=== PATIENT | female | born 1970 | race Hispanic/Latino ===

== ENCOUNTER 2021-03-11 03:41 | Inpatient (IN) | payer SELFPAY ==
[2021-03-11] MEDS ORDERED: Ibuprofen 200 MG TAB PO PRN (16:24)
[2021-03-11] MEDS ORDERED: Labetalol HCl 100 MG/20 ML VIAL SLOW IVP PRN (16:24)
[2021-03-11] MEDS ORDERED: Cepastat Lozenges 1 LOZ PO PRN (16:24)
[2021-03-11] MEDS ORDERED: hydrALAZINE 20 MG/ML VIAL SLOW IVP PRN (16:24)
[2021-03-11] MEDS ORDERED: Sodium Chloride 0.65% Nasal 44 ML BOT EA NARE PRN (16:24)
[2021-03-11] MEDS ORDERED: Potassium Chloride 20 MEQ TAB PO SCH (16:30)
[2021-03-11] MEDS ORDERED: REMDESIVIR 200 MG in Sodium Chloride 0.9% 250 ML 210 ML IV SCH (17:00)
[2021-03-11] MEDS ORDERED: Albuterol Sulfate HFA (OR ONLY) INH PRN (17:13)
[2021-03-11 17:27] LABS: Troponin I 0.263 ng/mL (< 0.028)
[2021-03-11] MEDS ORDERED: Furosemide 20 MG/2 ML VIAL SLOW IVP SCH (17:30)
[2021-03-11] MEDS ORDERED: Albuterol 200 PUFF (6.7GM INHALER) INH PRN (17:30)
[2021-03-11] MEDS ORDERED: Electrolyte Replacement Protocol 1 EACH FS PRN (18:00)
[2021-03-11] MEDS: Azithromycin 500 MG in Sodium Chloride 0.9% 250 ML 250 ML IVPB SCH (18:35)
[2021-03-11] MEDS: Acetaminophen 500 MG TAB PO PRN (18:42)
[2021-03-11] MEDS: GUAIFENESIN SF SOLN 200 MG/10 ML UDCUP PO PRN (18:48)
[2021-03-11] MEDS: Dexamethasone 4 mg/ml Vial SLOW IVP SCH (20:53)
[2021-03-11 22:32] LABS: Troponin I 0.305 ng/mL (< 0.028)
[2021-03-11] MEDS: Melatonin 3 MG TAB PO PRN (23:00)
[2021-03-12 05:24] LABS: #Lymphocytes 0.8 thou/uL (1.20-3.40); #Monocytes 0.3 thou/uL (0.11-0.59); #Neutrophils 11.9 thou/uL (1.40-6.50); %Basophils 0.1 % (0.0-1.0); %Eosinophils 0.1 % (0.0-10.0); %Monocytes 2.4 % (0.0-10.0); %Neutrophils 91.4 % (42.0-75.0); Hemoglobin 13.5 g/dL (12.0-16.0); Mean Corpuscular HGB CONC 30.9 g/dL (32.0-36.0); Mean Corpuscular Volume 90.5 fL (78.0-98.0); Mean Platelet Volume 8.5 fL (7.4-10.4); Platelet Count 287 thou/uL (130-400); RBC Distribution Width 14.7 % (11.5-14.5); Red Blood Cell (RBC) Count 4.83 mill/uL (4.20-5.40)
[2021-03-12 05:49] LABS: Anion Gap 14 mmol/L (10-20); BUN (Urea Nitrogen) 26 mg/dL (7.0-18.7); Calc. Creatinine Clearance 186 mL/min (70-130); Calcium 8.1 mg/dL (7.8-10.44); Carbon Dioxide 26 mmol/L (22-29); Chloride 104 mmol/L (98-107); Glucose 182 mg/dL (70-105); Magnesium 2.3 mg/dL (1.6-2.6); Potassium 4.5 mmol/L (3.5-5.1); Sodium 139 mmol/L (136-145)
[2021-03-12] MEDS: Acetaminophen 500 MG TAB PO PRN ×2 (05:58→16:19)
[2021-03-12 08:51] LABS: Troponin I 0.523 ng/mL (< 0.028)
[2021-03-12] MEDS ORDERED: Enoxaparin Sodium 40 MG/0.4 ML SYRINGE SC SCH (09:00)
[2021-03-12] MEDS: Cholecalciferol 1,000 UNITS (25 MCG) TAB PO SCH (09:35)
[2021-03-12] MEDS: Ascorbic Acid 500 mg Chewable Tablet PO SCH (09:36)
[2021-03-12] MEDS: Zinc Sulfate 220 MG CAP PO SCH (09:36)
[2021-03-12] MEDS: Benzonatate 100 MG CAP PO PRN (09:36)
[2021-03-12] MEDS: Dexamethasone 4 mg/ml Vial SLOW IVP SCH ×2 (09:37→20:53)
[2021-03-12] MEDS: GUAIFENESIN SF SOLN 200 MG/10 ML UDCUP PO PRN ×2 (09:39→16:19)
[2021-03-12] MEDS: Azithromycin 500 MG in Sodium Chloride 0.9% 250 ML 250 ML IVPB SCH (16:03)
[2021-03-12] MEDS: REMDESIVIR 100 MG in Sodium Chloride 0.9% 250 ML 230 ML IV SCH (20:53)
[2021-03-12] MEDS ORDERED: Morphine 2 MG/ML VIAL SLOW IVP PRN (21:57)
[2021-03-12] MEDS: Nitroglycerin 0.4 MG TAB (25 Tab Bottle) SL PRN ×3 (22:46→23:30)
[2021-03-13 06:04] LABS: #Lymphocytes 0.8 thou/uL (1.20-3.40); #Monocytes 0.4 thou/uL (0.11-0.59); #Neutrophils 8.1 thou/uL (1.40-6.50); %Eosinophils 0.1 % (0.0-10.0); %Monocytes 3.8 % (0.0-10.0); %Neutrophils 87.1 % (42.0-75.0); Hemoglobin 13.5 g/dL (12.0-16.0); Mean Corpuscular HGB CONC 30.3 g/dL (32.0-36.0); Mean Corpuscular Hemoglobin 27.2 pg (27.0-31.0); Mean Corpuscular Volume 89.8 fL (78.0-98.0); Mean Platelet Volume 8.7 fL (7.4-10.4); Platelet Count 290 thou/uL (130-400); RBC Distribution Width 14.7 % (11.5-14.5); Red Blood Cell (RBC) Count 4.96 mill/uL (4.20-5.40); White Blood Cell (WBC) Count 9.3 thou/uL (4.8-10.8)
[2021-03-13 06:29] LABS: Anion Gap 17 mmol/L (10-20); BUN (Urea Nitrogen) 38 mg/dL (7.0-18.7); CRP (Inflammatory) 13.19 mg/dL (= or < 0.5); Calc. Creatinine Clearance 211 mL/min (70-130); Calcium 7.7 mg/dL (7.8-10.44); Carbon Dioxide 21 mmol/L (22-29); Chloride 105 mmol/L (98-107); Glucose 179 mg/dL (70-105); Potassium 4.7 mmol/L (3.5-5.1); Sodium 138 mmol/L (136-145)
[2021-03-13] MEDS ORDERED: Furosemide 100 MG/10 ML VIAL SLOW IVP SCH (07:45)
[2021-03-13] MEDS ORDERED: Enoxaparin Sodium 120 MG/0.8 ML SYRINGE SC SCH (09:00)
[2021-03-13] MEDS: Acetaminophen 500 MG TAB PO PRN ×2 (09:41→21:47)
[2021-03-13] MEDS: Ascorbic Acid 500 mg Chewable Tablet PO SCH (09:42)
[2021-03-13] MEDS: Cholecalciferol 1,000 UNITS (25 MCG) TAB PO SCH (09:43)
[2021-03-13] MEDS: Zinc Sulfate 220 MG CAP PO SCH (09:43)
[2021-03-13] MEDS: Benzonatate 100 MG CAP PO PRN (09:43)
[2021-03-13] MEDS: Dexamethasone 4 mg/ml Vial SLOW IVP SCH ×2 (09:44→21:27)
[2021-03-13] MEDS: GUAIFENESIN SF SOLN 200 MG/10 ML UDCUP PO PRN ×2 (09:45→16:46)
[2021-03-13] MEDS: Azithromycin 500 MG in Sodium Chloride 0.9% 250 ML 250 ML IVPB SCH (16:26)
[2021-03-13] MEDS: Mometasone 100 MCG/Formoterol 5 MCG 120 PUFF INHALER INH SCH (18:37)
[2021-03-13] MEDS: REMDESIVIR 100 MG in Sodium Chloride 0.9% 250 ML 230 ML IV SCH (21:26)
[2021-03-13] MEDS: Enoxaparin Sodium 60 MG/0.6 ML SYRINGE SC SCH (21:26)
[2021-03-13] MEDS: BARICITINIB 2 MG TAB PO SCH (21:27)
[2021-03-13] MEDS: Enoxaparin Sodium 80 MG/0.8 ML SYRINGE SC SCH (21:30)
[2021-03-14 05:51] LABS: #Basophils 0.1 thou/uL (0.0-0.2); #Lymphocytes 1.1 thou/uL (1.20-3.40); #Monocytes 0.5 thou/uL (0.11-0.59); #Neutrophils 9.7 thou/uL (1.40-6.50); %Basophils 0.9 % (0.0-1.0); %Lymphocytes 9.3 % (21.0-51.0); %Monocytes 4.1 % (0.0-10.0); %Neutrophils 85.7 % (42.0-75.0); Hemoglobin 13.2 g/dL (12.0-16.0); Mean Corpuscular HGB CONC 30.8 g/dL (32.0-36.0); Mean Corpuscular Hemoglobin 27.4 pg (27.0-31.0); Mean Platelet Volume 8.7 fL (7.4-10.4); Platelet Count 272 thou/uL (130-400); RBC Distribution Width 14.5 % (11.5-14.5); Red Blood Cell (RBC) Count 4.79 mill/uL (4.20-5.40); White Blood Cell (WBC) Count 11.3 thou/uL (4.8-10.8)
[2021-03-14] MEDS: Mometasone 100 MCG/Formoterol 5 MCG 120 PUFF INHALER INH SCH ×2 (06:18→17:38)
[2021-03-14 06:24] LABS: Anion Gap 14 mmol/L (10-20); BUN (Urea Nitrogen) 36 mg/dL (7.0-18.7); Calc. Creatinine Clearance 236 mL/min (70-130); Calcium 7.7 mg/dL (7.8-10.44); Carbon Dioxide 25 mmol/L (22-29); Chloride 103 mmol/L (98-107); Glucose 169 mg/dL (70-105); Potassium 4.4 mmol/L (3.5-5.1); Sodium 138 mmol/L (136-145)
[2021-03-14] MEDS ORDERED: Furosemide 100 MG/10 ML VIAL SLOW IVP SCH (08:45)
[2021-03-14] MEDS: Benzonatate 100 MG CAP PO PRN (08:46)
[2021-03-14] MEDS: Cholecalciferol 1,000 UNITS (25 MCG) TAB PO SCH (08:46)
[2021-03-14] MEDS: Zinc Sulfate 220 MG CAP PO SCH (08:46)
[2021-03-14] MEDS: Aspirin 81 mg Enteric Coated Tablet PO SCH (08:46)
[2021-03-14] MEDS: GUAIFENESIN SF SOLN 200 MG/10 ML UDCUP PO PRN (08:47)
[2021-03-14] MEDS: Ascorbic Acid 500 mg Chewable Tablet PO SCH (08:47)
[2021-03-14] MEDS: Dexamethasone 4 mg/ml Vial SLOW IVP SCH ×2 (08:48→20:40)
[2021-03-14] MEDS: Enoxaparin Sodium 80 MG/0.8 ML SYRINGE SC SCH ×2 (08:50→20:40)
[2021-03-14] MEDS: Enoxaparin Sodium 60 MG/0.6 ML SYRINGE SC SCH ×2 (08:50→20:40)
[2021-03-14] MEDS: Nitroglycerin 0.4 MG TAB (25 Tab Bottle) SL PRN (09:56)
[2021-03-14] MEDS: Azithromycin 500 MG in Sodium Chloride 0.9% 250 ML 250 ML IVPB SCH (16:18)
[2021-03-14] MEDS: BARICITINIB 2 MG TAB PO SCH (20:41)
[2021-03-14] MEDS: REMDESIVIR 100 MG in Sodium Chloride 0.9% 250 ML 230 ML IV SCH (20:41)
[2021-03-15 05:58] LABS: Hemoglobin 13.9 g/dL (12.0-16.0); Mean Corpuscular Hemoglobin 27.6 pg (27.0-31.0); Platelet Count 276 thou/uL (130-400); RBC Distribution Width 14.5 % (11.5-14.5); Red Blood Cell (RBC) Count 5.06 mill/uL (4.20-5.40); White Blood Cell (WBC) Count 10.2 thou/uL (4.8-10.8)
[2021-03-15 06:02] LABS: Anion Gap 14 mmol/L (10-20); BUN (Urea Nitrogen) 31 mg/dL (7.0-18.7); Calc. Creatinine Clearance 220 mL/min (70-130); Calcium 7.8 mg/dL (7.8-10.44); Carbon Dioxide 27 mmol/L (22-29); Chloride 101 mmol/L (98-107); Glucose 230 mg/dL (70-105); Potassium 4.5 mmol/L (3.5-5.1); Sodium 137 mmol/L (136-145)
[2021-03-15 06:19] LABS: Bilirubin, Total 0.5 mg/dL (0.2-1.2)
[2021-03-15 06:33] LABS: ALT (SGPT) 107 U/L (8-55); AST (SGOT) 49 U/L (5-34); Alkaline Phosphatase 192 U/L (40-110); Bilirubin, Direct 0.3 mg/dL (0.1-0.3); Protein, Total 7.3 g/dL (6.0-8.3)
[2021-03-15 06:41] LABS: Band 7 % (5-11); Lymphocytes 8 % (21-51); MDiff Complete? YES; Monocytes 9 % (0-10); Neutrophil 76 % (42-75)
[2021-03-15] MEDS: Mometasone 100 MCG/Formoterol 5 MCG 120 PUFF INHALER INH SCH ×2 (07:59→17:53)
[2021-03-15] MEDS ORDERED: Spironolactone 25 MG TAB PO SCH (08:30)
[2021-03-15] MEDS ORDERED: Furosemide 100 MG/10 ML VIAL SLOW IVP SCH (08:30)
[2021-03-15] MEDS: Enoxaparin Sodium 80 MG/0.8 ML SYRINGE SC SCH ×2 (10:23→21:22)
[2021-03-15] MEDS: Enoxaparin Sodium 60 MG/0.6 ML SYRINGE SC SCH ×2 (10:23→21:22)
[2021-03-15] MEDS: Zinc Sulfate 220 MG CAP PO SCH (10:24)
[2021-03-15] MEDS: Aspirin 81 mg Enteric Coated Tablet PO SCH (10:24)
[2021-03-15] MEDS: Ascorbic Acid 500 mg Chewable Tablet PO SCH (10:24)
[2021-03-15] MEDS: GUAIFENESIN SF SOLN 200 MG/10 ML UDCUP PO PRN ×2 (10:26→22:02)
[2021-03-15] MEDS: Dexamethasone 4 mg/ml Vial SLOW IVP SCH ×2 (10:28→21:22)
[2021-03-15] MEDS: Cholecalciferol 1,000 UNITS (25 MCG) TAB PO SCH (10:30)
[2021-03-15] MEDS: Benzonatate 100 MG CAP PO PRN (10:31)
[2021-03-15] MEDS: Acetaminophen 500 MG TAB PO PRN ×2 (13:44→22:01)
[2021-03-15] MEDS: Azithromycin 500 MG in Sodium Chloride 0.9% 250 ML 250 ML IVPB SCH (16:00)
[2021-03-15] MEDS: BARICITINIB 2 MG TAB PO SCH (21:22)
[2021-03-15] MEDS: REMDESIVIR 100 MG in Sodium Chloride 0.9% 250 ML 230 ML IV SCH (21:23)
[2021-03-16 05:29] LABS: #Lymphocytes 0.9 thou/uL (1.20-3.40); #Monocytes 0.5 thou/uL (0.11-0.59); #Neutrophils 11.3 thou/uL (1.40-6.50); %Basophils 0.2 % (0.0-1.0); %Eosinophils 0.3 % (0.0-10.0); %Lymphocytes 7.2 % (21.0-51.0); %Monocytes 3.8 % (0.0-10.0); %Neutrophils 88.6 % (42.0-75.0); Hemoglobin 14.1 g/dL (12.0-16.0); Mean Corpuscular HGB CONC 31.9 g/dL (32.0-36.0); Mean Corpuscular Hemoglobin 28.4 pg (27.0-31.0); Mean Corpuscular Volume 88.9 fL (78.0-98.0); Mean Platelet Volume 8.7 fL (7.4-10.4); Platelet Count 281 thou/uL (130-400); RBC Distribution Width 14.4 % (11.5-14.5); Red Blood Cell (RBC) Count 4.98 mill/uL (4.20-5.40); White Blood Cell (WBC) Count 12.7 thou/uL (4.8-10.8)
[2021-03-16 05:53] LABS: Anion Gap 16 mmol/L (10-20); BUN (Urea Nitrogen) 39 mg/dL (7.0-18.7); Calc. Creatinine Clearance 195 mL/min (70-130); Calcium 7.7 mg/dL (7.8-10.44); Carbon Dioxide 27 mmol/L (22-29); Chloride 99 mmol/L (98-107); Glucose 190 mg/dL (70-105); Potassium 4.5 mmol/L (3.5-5.1); Sodium 137 mmol/L (136-145)
[2021-03-16] MEDS: Mometasone 100 MCG/Formoterol 5 MCG 120 PUFF INHALER INH SCH ×2 (06:26→17:24)
[2021-03-16] MEDS ORDERED: Furosemide 100 MG/10 ML VIAL SLOW IVP SCH (07:15)
[2021-03-16] MEDS: Enoxaparin Sodium 80 MG/0.8 ML SYRINGE SC SCH ×2 (08:00→20:59)
[2021-03-16] MEDS: Aspirin 81 mg Enteric Coated Tablet PO SCH (08:01)
[2021-03-16] MEDS: Enoxaparin Sodium 60 MG/0.6 ML SYRINGE SC SCH ×2 (08:01→20:59)
[2021-03-16] MEDS: Zinc Sulfate 220 MG CAP PO SCH (08:01)
[2021-03-16] MEDS: Cholecalciferol 1,000 UNITS (25 MCG) TAB PO SCH (08:02)
[2021-03-16] MEDS: Ascorbic Acid 500 mg Chewable Tablet PO SCH (08:02)
[2021-03-16] MEDS: Spironolactone 25 MG TAB PO SCH (08:02)
[2021-03-16] MEDS: Dexamethasone 4 mg/ml Vial SLOW IVP SCH ×2 (08:03→20:59)
[2021-03-16] MEDS: Azithromycin 500 MG in Sodium Chloride 0.9% 250 ML 250 ML IVPB SCH (17:24)
[2021-03-16] MEDS: BARICITINIB 2 MG TAB PO SCH (20:58)
[2021-03-16] MEDS: Lisinopril 5 MG TAB PO SCH (21:02)
[2021-03-17] MEDS: Mometasone 100 MCG/Formoterol 5 MCG 120 PUFF INHALER INH SCH ×2 (06:26→18:15)
[2021-03-17] MEDS: Enoxaparin Sodium 80 MG/0.8 ML SYRINGE SC SCH ×2 (09:18→20:19)
[2021-03-17] MEDS: Enoxaparin Sodium 60 MG/0.6 ML SYRINGE SC SCH ×2 (09:19→20:17)
[2021-03-17] MEDS: Aspirin 81 mg Enteric Coated Tablet PO SCH (09:19)
[2021-03-17] MEDS: Benzonatate 100 MG CAP PO PRN (09:20)
[2021-03-17] MEDS: Spironolactone 25 MG TAB PO SCH (09:20)
[2021-03-17] MEDS: Zinc Sulfate 220 MG CAP PO SCH (09:20)
[2021-03-17] MEDS: Ascorbic Acid 500 mg Chewable Tablet PO SCH (09:20)
[2021-03-17] MEDS: Furosemide 40 MG/4 ML VIAL SLOW IVP SCH (09:21)
[2021-03-17] MEDS: Cholecalciferol 1,000 UNITS (25 MCG) TAB PO SCH (09:21)
[2021-03-17] MEDS: Dexamethasone 4 mg/ml Vial SLOW IVP SCH ×2 (09:22→20:17)
[2021-03-17] MEDS: GUAIFENESIN SF SOLN 200 MG/10 ML UDCUP PO PRN (09:23)
[2021-03-17] MEDS: Lisinopril 5 MG TAB PO SCH ×2 (09:23→20:18)
[2021-03-17] MEDS: Azithromycin 500 MG in Sodium Chloride 0.9% 250 ML 250 ML IVPB SCH (16:30)
[2021-03-17] MEDS: BARICITINIB 2 MG TAB PO SCH (20:17)
[2021-03-18 05:49] LABS: ALT (SGPT) 40 U/L (8-55); AST (SGOT) 15 U/L (5-34); Albumin 2.8 g/dL (3.5-5.0); Alkaline Phosphatase 130 U/L (40-110); Bilirubin, Direct 0.3 mg/dL (0.1-0.3); Bilirubin, Total 0.6 mg/dL (0.2-1.2)
[2021-03-18] MEDS: Mometasone 100 MCG/Formoterol 5 MCG 120 PUFF INHALER INH SCH ×2 (06:20→17:55)
[2021-03-18] MEDS: Aspirin 81 mg Enteric Coated Tablet PO SCH (10:09)
[2021-03-18] MEDS: Benzonatate 100 MG CAP PO PRN ×2 (10:09→18:09)
[2021-03-18] MEDS: Lisinopril 5 MG TAB PO SCH ×2 (10:10→20:25)
[2021-03-18] MEDS: Ascorbic Acid 500 mg Chewable Tablet PO SCH (10:10)
[2021-03-18] MEDS: Zinc Sulfate 220 MG CAP PO SCH (10:11)
[2021-03-18] MEDS: Spironolactone 25 MG TAB PO SCH (10:11)
[2021-03-18] MEDS: Enoxaparin Sodium 60 MG/0.6 ML SYRINGE SC SCH ×2 (10:11→20:24)
[2021-03-18] MEDS: Cholecalciferol 1,000 UNITS (25 MCG) TAB PO SCH (10:11)
[2021-03-18] MEDS: Furosemide 40 MG/4 ML VIAL SLOW IVP SCH (10:12)
[2021-03-18] MEDS: Enoxaparin Sodium 80 MG/0.8 ML SYRINGE SC SCH ×2 (10:12→20:24)
[2021-03-18] MEDS: GUAIFENESIN SF SOLN 200 MG/10 ML UDCUP PO PRN ×2 (10:13→18:09)
[2021-03-18] MEDS: Dexamethasone 4 mg/ml Vial SLOW IVP SCH ×2 (10:13→20:25)
[2021-03-18] MEDS: Azithromycin 500 MG in Sodium Chloride 0.9% 250 ML 250 ML IVPB SCH (17:55)
[2021-03-18] MEDS: BARICITINIB 2 MG TAB PO SCH (20:24)
[2021-03-19] MEDS: Mometasone 100 MCG/Formoterol 5 MCG 120 PUFF INHALER INH SCH ×2 (06:16→18:45)
[2021-03-19] MEDS: Acetaminophen 500 MG TAB PO PRN (06:26)
[2021-03-19] MEDS: Furosemide 40 MG/4 ML VIAL SLOW IVP SCH (09:55)
[2021-03-19] MEDS: Zinc Sulfate 220 MG CAP PO SCH (09:59)
[2021-03-19] MEDS: Benzonatate 100 MG CAP PO PRN ×3 (09:59→21:18)
[2021-03-19] MEDS: Aspirin 81 mg Enteric Coated Tablet PO SCH (10:00)
[2021-03-19] MEDS: Lisinopril 5 MG TAB PO SCH ×2 (10:00→21:08)
[2021-03-19] MEDS: Ascorbic Acid 500 mg Chewable Tablet PO SCH (10:00)
[2021-03-19] MEDS: Spironolactone 25 MG TAB PO SCH (10:00)
[2021-03-19] MEDS: Enoxaparin Sodium 80 MG/0.8 ML SYRINGE SC SCH ×2 (10:01→21:06)
[2021-03-19] MEDS: Enoxaparin Sodium 60 MG/0.6 ML SYRINGE SC SCH ×2 (10:01→21:06)
[2021-03-19] MEDS: Dexamethasone 4 mg/ml Vial SLOW IVP SCH (10:01)
[2021-03-19] MEDS: GUAIFENESIN SF SOLN 200 MG/10 ML UDCUP PO PRN ×3 (10:02→21:18)
[2021-03-19] MEDS: Cholecalciferol 1,000 UNITS (25 MCG) TAB PO SCH (10:02)
[2021-03-19] MEDS: Azithromycin 500 MG in Sodium Chloride 0.9% 250 ML 250 ML IVPB SCH (17:42)
[2021-03-19] MEDS: BARICITINIB 2 MG TAB PO SCH (21:08)
[2021-03-20] MEDS: GUAIFENESIN SF SOLN 200 MG/10 ML UDCUP PO PRN (03:36)
[2021-03-20 05:55] LABS: Anion Gap 13 mmol/L (10-20); BUN (Urea Nitrogen) 38 mg/dL (7.0-18.7); Calc. Creatinine Clearance 187 mL/min (70-130); Calcium 7.6 mg/dL (7.8-10.44); Carbon Dioxide 28 mmol/L (22-29); Chloride 99 mmol/L (98-107); Glucose 260 mg/dL (70-105); Sodium 135 mmol/L (136-145)
[2021-03-20] MEDS: Mometasone 100 MCG/Formoterol 5 MCG 120 PUFF INHALER INH SCH ×2 (06:29→18:32)
[2021-03-20] MEDS: Enoxaparin Sodium 60 MG/0.6 ML SYRINGE SC SCH ×2 (08:24→20:47)
[2021-03-20] MEDS: Dexamethasone 4 mg/ml Vial SLOW IVP SCH (08:25)
[2021-03-20] MEDS: Enoxaparin Sodium 80 MG/0.8 ML SYRINGE SC SCH ×2 (08:25→20:48)
[2021-03-20] MEDS: Spironolactone 25 MG TAB PO SCH (08:31)
[2021-03-20] MEDS: Ascorbic Acid 500 mg Chewable Tablet PO SCH (08:31)
[2021-03-20] MEDS: Benzonatate 100 MG CAP PO PRN (08:58)
[2021-03-20] MEDS: Zinc Sulfate 220 MG CAP PO SCH (08:58)
[2021-03-20] MEDS: Aspirin 81 mg Enteric Coated Tablet PO SCH (08:58)
[2021-03-20] MEDS: Furosemide 40 MG TAB PO SCH (08:59)
[2021-03-20] MEDS: Cholecalciferol 1,000 UNITS (25 MCG) TAB PO SCH (08:59)
[2021-03-20] MEDS: Lisinopril 5 MG TAB PO SCH (08:59)
[2021-03-20] MEDS: Acetaminophen 500 MG TAB PO PRN (09:18)
[2021-03-20] MEDS: Azithromycin 500 MG in Sodium Chloride 0.9% 250 ML 250 ML IVPB SCH (18:26)
[2021-03-20] MEDS: BARICITINIB 2 MG TAB PO SCH (20:48)
[2021-03-21] MEDS: Mometasone 100 MCG/Formoterol 5 MCG 120 PUFF INHALER INH SCH ×2 (06:25→16:38)
[2021-03-21 09:40] LABS: ALT (SGPT) 26 U/L (8-55); AST (SGOT) 18 U/L (5-34); Albumin 2.9 g/dL (3.5-5.0); Alkaline Phosphatase 115 U/L (40-110); Bilirubin, Direct 0.3 mg/dL (0.1-0.3); Bilirubin, Total 0.7 mg/dL (0.2-1.2); Protein, Total 6.4 g/dL (6.0-8.3)
[2021-03-21] MEDS: Furosemide 40 MG TAB PO SCH (09:52)
[2021-03-21] MEDS: Cholecalciferol 1,000 UNITS (25 MCG) TAB PO SCH (09:54)
[2021-03-21] MEDS: Benzonatate 100 MG CAP PO PRN (09:55)
[2021-03-21] MEDS: Lisinopril 5 MG TAB PO SCH (09:55)
[2021-03-21] MEDS: Aspirin 81 mg Enteric Coated Tablet PO SCH (09:55)
[2021-03-21] MEDS: Ascorbic Acid 500 mg Chewable Tablet PO SCH (09:56)
[2021-03-21] MEDS: Acetaminophen 500 MG TAB PO PRN (09:56)
[2021-03-21] MEDS: Spironolactone 25 MG TAB PO SCH (09:56)
[2021-03-21] MEDS: Zinc Sulfate 220 MG CAP PO SCH (09:56)
[2021-03-21] MEDS: Enoxaparin Sodium 80 MG/0.8 ML SYRINGE SC SCH ×2 (09:57→20:34)
[2021-03-21] MEDS: Dexamethasone 4 mg/ml Vial SLOW IVP SCH (09:58)
[2021-03-21] MEDS: Enoxaparin Sodium 60 MG/0.6 ML SYRINGE SC SCH (09:58)
[2021-03-21] MEDS: GUAIFENESIN SF SOLN 200 MG/10 ML UDCUP PO PRN (10:00)
[2021-03-21] MEDS: Azithromycin 500 MG in Sodium Chloride 0.9% 250 ML 250 ML IVPB SCH (16:38)
[2021-03-21] MEDS: Lorazepam 0.5 MG TAB PO PRN (17:51)
[2021-03-21] MEDS: BARICITINIB 2 MG TAB PO SCH (20:35)
[2021-03-22 05:40] LABS: Hemoglobin 13.5 g/dL (12.0-16.0); Mean Corpuscular HGB CONC 30.8 g/dL (32.0-36.0); Mean Corpuscular Hemoglobin 27.7 pg (27.0-31.0); Mean Platelet Volume 8.8 fL (7.4-10.4); Platelet Count 345 thou/uL (130-400); RBC Distribution Width 14.9 % (11.5-14.5); Red Blood Cell (RBC) Count 4.85 mill/uL (4.20-5.40); White Blood Cell (WBC) Count 18.2 thou/uL (4.8-10.8)
[2021-03-22] MEDS: Mometasone 100 MCG/Formoterol 5 MCG 120 PUFF INHALER INH SCH ×2 (05:40→21:14)
[2021-03-22 05:41] LABS: Lymphocytes 3 % (21-51); MDiff Complete? YES; Monocytes 18 % (0-10); Neutrophil 79 % (42-75); Platelet Morphology Comment Appears Adequate; RBC Morphology Normal
[2021-03-22 05:45] LABS: Anion Gap 12 mmol/L (10-20); BUN (Urea Nitrogen) 36 mg/dL (7.0-18.7); Calc. Creatinine Clearance 192 mL/min (70-130); Carbon Dioxide 26 mmol/L (22-29); Chloride 103 mmol/L (98-107); Glucose 179 mg/dL (70-105); Sodium 136 mmol/L (136-145)
[2021-03-22] MEDS: Furosemide 40 MG TAB PO SCH (07:48)
[2021-03-22] MEDS: Spironolactone 25 MG TAB PO SCH (07:48)
[2021-03-22] MEDS: Aspirin 81 mg Enteric Coated Tablet PO SCH (07:49)
[2021-03-22] MEDS: Ascorbic Acid 500 mg Chewable Tablet PO SCH (07:49)
[2021-03-22] MEDS: Zinc Sulfate 220 MG CAP PO SCH (07:49)
[2021-03-22] MEDS: Lisinopril 5 MG TAB PO SCH (07:49)
[2021-03-22] MEDS: Dexamethasone 4 mg/ml Vial SLOW IVP SCH (07:50)
[2021-03-22] MEDS: Cholecalciferol 1,000 UNITS (25 MCG) TAB PO SCH (07:50)
[2021-03-22] MEDS: Enoxaparin Sodium 80 MG/0.8 ML SYRINGE SC SCH ×2 (07:50→21:07)
[2021-03-22] MEDS: Lorazepam 0.5 MG TAB PO PRN ×2 (10:28→17:17)
[2021-03-22] MEDS: Acetaminophen 500 MG TAB PO PRN (18:18)
[2021-03-22] MEDS: BARICITINIB 2 MG TAB PO SCH (21:06)
[2021-03-22] MEDS: Melatonin 3 MG TAB PO PRN (21:07)
[2021-03-23 05:28] LABS: #Lymphocytes 1.4 thou/uL (1.20-3.40); #Monocytes 0.5 thou/uL (0.11-0.59); #Neutrophils 15.6 thou/uL (1.40-6.50); %Basophils 0.2 % (0.0-1.0); %Eosinophils 0.2 % (0.0-10.0); %Lymphocytes 8.1 % (21.0-51.0); %Neutrophils 88.4 % (42.0-75.0); Hemoglobin 13.3 g/dL (12.0-16.0); Mean Corpuscular HGB CONC 32.6 g/dL (32.0-36.0); Mean Corpuscular Hemoglobin 29.1 pg (27.0-31.0); Mean Corpuscular Volume 89.1 fL (78.0-98.0); Mean Platelet Volume 8.8 fL (7.4-10.4); Platelet Count 331 thou/uL (130-400); Red Blood Cell (RBC) Count 4.57 mill/uL (4.20-5.40); White Blood Cell (WBC) Count 17.6 thou/uL (4.8-10.8)
[2021-03-23] MEDS: Acetaminophen 500 MG TAB PO PRN ×3 (05:38→21:11)
[2021-03-23] MEDS: Mometasone 100 MCG/Formoterol 5 MCG 120 PUFF INHALER INH SCH ×2 (05:39→20:59)
[2021-03-23 05:56] LABS: Anion Gap 12 mmol/L (10-20); BUN (Urea Nitrogen) 39 mg/dL (7.0-18.7); Calc. Creatinine Clearance 173 mL/min (70-130); Calcium 8.2 mg/dL (7.8-10.44); Carbon Dioxide 26 mmol/L (22-29); Chloride 100 mmol/L (98-107); Glucose 165 mg/dL (70-105); Potassium 4.9 mmol/L (3.5-5.1); Sodium 133 mmol/L (136-145)
[2021-03-23] MEDS: Furosemide 40 MG TAB PO SCH (07:57)
[2021-03-23] MEDS: Lisinopril 5 MG TAB PO SCH ×3 (07:57→08:15)
[2021-03-23] MEDS: Aspirin 81 mg Enteric Coated Tablet PO SCH (07:57)
[2021-03-23] MEDS: Enoxaparin Sodium 80 MG/0.8 ML SYRINGE SC SCH ×2 (07:57→20:58)
[2021-03-23] MEDS: Cholecalciferol 1,000 UNITS (25 MCG) TAB PO SCH (07:57)
[2021-03-23] MEDS: Zinc Sulfate 220 MG CAP PO SCH (07:57)
[2021-03-23] MEDS: Spironolactone 25 MG TAB PO SCH (07:57)
[2021-03-23] MEDS: Ascorbic Acid 500 mg Chewable Tablet PO SCH (07:57)
[2021-03-23] MEDS: Dexamethasone 4 mg/ml Vial SLOW IVP SCH (07:58)
[2021-03-23] MEDS: Lorazepam 0.5 MG TAB PO PRN (14:49)
[2021-03-23] MEDS: BARICITINIB 2 MG TAB PO SCH (20:58)
[2021-03-24] MEDS ORDERED: Nystatin 100,000 Units/mL UDCUP SSW SCH ×2 (01:45→09:00)
[2021-03-24] MEDS ORDERED: Nystatin 500,000 UNITS/5 ML UDCUP SSW SCH ×2 (02:30→02:45)
[2021-03-24 05:50] LABS: #Eosinphils 0.1 thou/uL (0.0-0.7); #Lymphocytes 1.4 thou/uL (1.20-3.40); #Monocytes 0.4 thou/uL (0.11-0.59); #Neutrophils 13.9 thou/uL (1.40-6.50); %Basophils 0.1 % (0.0-1.0); %Eosinophils 0.9 % (0.0-10.0); %Lymphocytes 8.9 % (21.0-51.0); %Monocytes 2.5 % (0.0-10.0); %Neutrophils 87.5 % (42.0-75.0); Hemoglobin 12.3 g/dL (12.0-16.0); Mean Corpuscular Hemoglobin 29.1 pg (27.0-31.0); Mean Corpuscular Volume 88.2 fL (78.0-98.0); Mean Platelet Volume 8.6 fL (7.4-10.4); Platelet Count 361 thou/uL (130-400); RBC Distribution Width 14.9 % (11.5-14.5); Red Blood Cell (RBC) Count 4.23 mill/uL (4.20-5.40); White Blood Cell (WBC) Count 15.9 thou/uL (4.8-10.8)
[2021-03-24] MEDS: Mometasone 100 MCG/Formoterol 5 MCG 120 PUFF INHALER INH SCH ×2 (05:52→18:04)
[2021-03-24] MEDS: Acetaminophen 500 MG TAB PO PRN (06:09)
[2021-03-24 06:15] LABS: ALT (SGPT) 23 U/L (8-55); AST (SGOT) 17 U/L (5-34); Albumin 3.2 g/dL (3.5-5.0); Alkaline Phosphatase 102 U/L (40-110); Anion Gap 11 mmol/L (10-20); BUN (Urea Nitrogen) 45 mg/dL (7.0-18.7); Bilirubin, Direct 0.3 mg/dL (0.1-0.3); Bilirubin, Total 0.8 mg/dL (0.2-1.2); Calc. Creatinine Clearance 183 mL/min (70-130); Calcium 8.6 mg/dL (7.8-10.44); Carbon Dioxide 29 mmol/L (22-29); Chloride 98 mmol/L (98-107); Glucose 183 mg/dL (70-105); Potassium 4.9 mmol/L (3.5-5.1); Protein, Total 6.7 g/dL (6.0-8.3); Sodium 133 mmol/L (136-145)
[2021-03-24] MEDS: Sodium Chloride 0.65% Nasal 44 ML BOT EA NARE SCH ×3 (06:15→18:03)
[2021-03-24] MEDS: Ascorbic Acid 500 mg Chewable Tablet PO SCH (09:11)
[2021-03-24] MEDS: Enoxaparin Sodium 80 MG/0.8 ML SYRINGE SC SCH ×2 (09:11→20:43)
[2021-03-24] MEDS: Dexamethasone 4 mg/ml Vial SLOW IVP SCH (09:11)
[2021-03-24] MEDS: Nystatin 500,000 UNITS/5 ML UDCUP SSW SCH ×4 (09:11→20:43)
[2021-03-24] MEDS: Aspirin 81 mg Enteric Coated Tablet PO SCH (09:11)
[2021-03-24] MEDS: Zinc Sulfate 220 MG CAP PO SCH (09:11)
[2021-03-24] MEDS: Furosemide 40 MG TAB PO SCH ×2 (09:32→10:11)
[2021-03-24] MEDS: Lisinopril 5 MG TAB PO SCH ×2 (09:33→10:12)
[2021-03-24] MEDS: Spironolactone 25 MG TAB PO SCH (09:33)
[2021-03-24] MEDS: Cholecalciferol 1,000 UNITS (25 MCG) TAB PO SCH (10:01)
[2021-03-24] MEDS: Lidocaine Viscous Sol 2% 15 ml UD Cup SSP SCH ×2 (15:45→20:43)
[2021-03-24] MEDS: BARICITINIB 2 MG TAB PO SCH (20:43)
[2021-03-25] MEDS: Sodium Chloride 0.65% Nasal 44 ML BOT EA NARE SCH ×5 (00:10→19:58)
[2021-03-25] MEDS: Mometasone 100 MCG/Formoterol 5 MCG 120 PUFF INHALER INH SCH ×2 (06:30→17:41)
[2021-03-25] MEDS: Furosemide 40 MG TAB PO SCH (06:31)
[2021-03-25] MEDS: Enoxaparin Sodium 80 MG/0.8 ML SYRINGE SC SCH ×2 (09:15→19:57)
[2021-03-25] MEDS: Ascorbic Acid 500 mg Chewable Tablet PO SCH (09:15)
[2021-03-25] MEDS: Cholecalciferol 1,000 UNITS (25 MCG) TAB PO SCH (09:16)
[2021-03-25] MEDS: Nystatin 500,000 UNITS/5 ML UDCUP SSW SCH ×4 (09:16→19:58)
[2021-03-25] MEDS: Aspirin 81 mg Enteric Coated Tablet PO SCH (09:16)
[2021-03-25] MEDS: Dexamethasone 4 mg/ml Vial SLOW IVP SCH (09:16)
[2021-03-25] MEDS: Zinc Sulfate 220 MG CAP PO SCH (09:16)
[2021-03-25] MEDS: Lisinopril 5 MG TAB PO SCH (09:19)
[2021-03-25] MEDS: Spironolactone 25 MG TAB PO SCH (09:19)
[2021-03-25] MEDS: Lidocaine Viscous Sol 2% 15 ml UD Cup SSP SCH ×3 (09:26→20:06)
[2021-03-25] MEDS: Acyclovir Sodium 260 MG in Sodium Chloride 0.9% 100 ML IVPB SCH (19:53)
[2021-03-25] MEDS: BARICITINIB 2 MG TAB PO SCH (19:58)
[2021-03-25] MEDS: Acetaminophen 500 MG TAB PO PRN (20:08)
[2021-03-26] MEDS ORDERED: Midodrine HCl 5 MG TAB PO SCH ×2 (04:30→06:18)
[2021-03-26] MEDS: Acyclovir Sodium 260 MG in Sodium Chloride 0.9% 100 ML IVPB SCH ×3 (04:42→20:25)
[2021-03-26] MEDS ORDERED: Sodium Chloride 0.9% 250 ML IV SCH (04:45)
[2021-03-26] MEDS: Acetaminophen 500 MG TAB PO PRN (04:52)
[2021-03-26] MEDS: Mometasone 100 MCG/Formoterol 5 MCG 120 PUFF INHALER INH SCH ×2 (06:19→18:12)
[2021-03-26] MEDS: Sodium Chloride 0.65% Nasal 44 ML BOT EA NARE SCH ×4 (06:19→23:52)
[2021-03-26] MEDS ORDERED: Sodium Chloride 0.9% 500 ML IV SCH (06:30)
[2021-03-26] MEDS: Furosemide 40 MG TAB PO SCH (07:02)
[2021-03-26 07:03] LABS: #Eosinphils 0.1 thou/uL (0.0-0.7); #Lymphocytes 1.4 thou/uL (1.20-3.40); #Monocytes 0.8 thou/uL (0.11-0.59); #Neutrophils 13.5 thou/uL (1.40-6.50); %Basophils 0.3 % (0.0-1.0); %Eosinophils 0.9 % (0.0-10.0); %Lymphocytes 8.8 % (21.0-51.0); %Monocytes 4.9 % (0.0-10.0); %Neutrophils 85.1 % (42.0-75.0); Hemoglobin 11.5 g/dL (12.0-16.0); Mean Corpuscular HGB CONC 32.5 g/dL (32.0-36.0); Mean Corpuscular Hemoglobin 28.8 pg (27.0-31.0); Mean Corpuscular Volume 88.7 fL (78.0-98.0); Mean Platelet Volume 8.4 fL (7.4-10.4); Platelet Count 360 thou/uL (130-400); RBC Distribution Width 15.5 % (11.5-14.5); White Blood Cell (WBC) Count 15.9 thou/uL (4.8-10.8)
[2021-03-26 07:17] LABS: Lactic Acid 1.4 mmol/L (0.5-2.2)
[2021-03-26 07:27] LABS: ALT (SGPT) 24 U/L (8-55); AST (SGOT) 18 U/L (5-34); Albumin 3.2 g/dL (3.5-5.0); Alkaline Phosphatase 85 U/L (40-110); Anion Gap 14 mmol/L (10-20); BUN (Urea Nitrogen) 52 mg/dL (7.0-18.7); Bilirubin, Total 0.9 mg/dL (0.2-1.2); Calc. Creatinine Clearance 140 mL/min (70-130); Calcium 7.9 mg/dL (7.8-10.44); Carbon Dioxide 25 mmol/L (22-29); Chloride 101 mmol/L (98-107); Globulin 3.3 g/dL (2.4-3.5); Glucose 143 mg/dL (70-105); Potassium 4.2 mmol/L (3.5-5.1); Protein, Total 6.5 g/dL (6.0-8.3); Sodium 136 mmol/L (136-145)
[2021-03-26] MEDS: Enoxaparin Sodium 80 MG/0.8 ML SYRINGE SC SCH ×2 (08:38→20:25)
[2021-03-26] MEDS: Aspirin 81 mg Enteric Coated Tablet PO SCH (08:39)
[2021-03-26] MEDS: Nystatin 500,000 UNITS/5 ML UDCUP SSW SCH ×3 (08:39→16:38)
[2021-03-26] MEDS: Zinc Sulfate 220 MG CAP PO SCH (08:39)
[2021-03-26] MEDS: Spironolactone 25 MG TAB PO SCH (08:39)
[2021-03-26] MEDS: Dexamethasone 4 mg/ml Vial SLOW IVP SCH (08:39)
[2021-03-26] MEDS: Ascorbic Acid 500 mg Chewable Tablet PO SCH (08:39)
[2021-03-26] MEDS: Cholecalciferol 1,000 UNITS (25 MCG) TAB PO SCH (08:39)
[2021-03-26] MEDS: Lisinopril 5 MG TAB PO SCH (08:40)
[2021-03-26] MEDS: Lidocaine Viscous Sol 2% 15 ml UD Cup SSP SCH ×2 (09:02→15:43)
[2021-03-26] MEDS: BARICITINIB 2 MG TAB PO SCH (20:26)
[2021-03-27] MEDS: Sodium Chloride 0.65% Nasal 44 ML BOT EA NARE SCH ×4 (00:50→17:46)
[2021-03-27] MEDS: Acyclovir Sodium 260 MG in Sodium Chloride 0.9% 100 ML IVPB SCH ×3 (04:05→20:32)
[2021-03-27] MEDS ORDERED: Lidocaine Viscous Sol 2% 15 ml UD Cup SSP SCH (05:00)
[2021-03-27] MEDS: Mometasone 100 MCG/Formoterol 5 MCG 120 PUFF INHALER INH SCH ×2 (05:47→17:49)
[2021-03-27] MEDS: Zinc Sulfate 220 MG CAP PO SCH (08:23)
[2021-03-27] MEDS: Spironolactone 25 MG TAB PO SCH (08:23)
[2021-03-27] MEDS: Enoxaparin Sodium 80 MG/0.8 ML SYRINGE SC SCH ×2 (08:23→20:32)
[2021-03-27] MEDS: Aspirin 81 mg Enteric Coated Tablet PO SCH (08:23)
[2021-03-27] MEDS: Ascorbic Acid 500 mg Chewable Tablet PO SCH (08:23)
[2021-03-27] MEDS: Cholecalciferol 1,000 UNITS (25 MCG) TAB PO SCH (08:23)
[2021-03-27] MEDS: Furosemide 20 MG TAB PO SCH (08:25)
[2021-03-27] MEDS: Aluminum & Magnesium Hydroxide 60 ML, Lidocaine 2% Viscous Solution 30 ML, diphenhydrAM... SSW SCH ×3 (08:26→17:45)
[2021-03-28] MEDS ORDERED: Lidocaine Viscous Sol 2% 15 ml UD Cup SSP SCH (01:15)
[2021-03-28] MEDS: Lorazepam 0.5 MG TAB PO PRN (01:36)
[2021-03-28] MEDS: Acyclovir Sodium 260 MG in Sodium Chloride 0.9% 100 ML IVPB SCH ×3 (03:15→20:42)
[2021-03-28] MEDS: Sodium Chloride 0.65% Nasal 44 ML BOT EA NARE SCH ×4 (05:52→21:17)
[2021-03-28 08:29] LABS: Anion Gap 18 mmol/L (10-20); BUN (Urea Nitrogen) 36 mg/dL (7.0-18.7); Calc. Creatinine Clearance 233 mL/min (70-130); Calcium 8.2 mg/dL (7.8-10.44); Carbon Dioxide 21 mmol/L (22-29); Chloride 104 mmol/L (98-107); Glucose 146 mg/dL (70-105); Potassium 4.8 mmol/L (3.5-5.1); Sodium 138 mmol/L (136-145)
[2021-03-28 08:39] LABS: Hemoglobin 10.8 g/dL (12.0-16.0); Mean Corpuscular HGB CONC 32.6 g/dL (32.0-36.0); Mean Corpuscular Hemoglobin 28.7 pg (27.0-31.0); Mean Corpuscular Volume 88.2 fL (78.0-98.0); Mean Platelet Volume 8.7 fL (7.4-10.4); Platelet Count 297 thou/uL (130-400); RBC Distribution Width 15.6 % (11.5-14.5); Red Blood Cell (RBC) Count 3.76 mill/uL (4.20-5.40); White Blood Cell (WBC) Count 19.8 thou/uL (4.8-10.8)
[2021-03-28 09:07] LABS: Band 10 % (5-11); Eosinophils 1 % (0-10); Lymphocytes 6 % (21-51); MDiff Complete? YES; Metamyelocyte 1 % (0-0); Monocytes 2 % (0-10); Myelocyte 1 % (0-0); Neutrophil 79 % (42-75); Nucleated RBC 1 % (0); Platelet Morphology Comment Appears Adequate; Polychromasia SLIGHT = 2-3 cells (100X) (0-2/hpf)
[2021-03-28] MEDS: Zinc Sulfate 220 MG CAP PO SCH (09:10)
[2021-03-28] MEDS: Cholecalciferol 1,000 UNITS (25 MCG) TAB PO SCH (09:10)
[2021-03-28] MEDS: Furosemide 20 MG TAB PO SCH (09:10)
[2021-03-28] MEDS: Ascorbic Acid 500 mg Chewable Tablet PO SCH (09:10)
[2021-03-28] MEDS: Enoxaparin Sodium 80 MG/0.8 ML SYRINGE SC SCH ×2 (09:10→21:17)
[2021-03-28] MEDS: Spironolactone 25 MG TAB PO SCH (09:10)
[2021-03-28] MEDS: Aspirin 81 mg Enteric Coated Tablet PO SCH (09:11)
[2021-03-28] MEDS: Aluminum & Magnesium Hydroxide 60 ML, Lidocaine 2% Viscous Solution 30 ML, diphenhydrAM... SSW SCH ×3 (11:13→17:49)
[2021-03-29] MEDS: Acyclovir Sodium 260 MG in Sodium Chloride 0.9% 100 ML IVPB SCH ×3 (03:25→20:19)
[2021-03-29 05:29] LABS: Hemoglobin 10.3 g/dL (12.0-16.0); Mean Corpuscular HGB CONC 32.2 g/dL (32.0-36.0); Mean Corpuscular Volume 90.1 fL (78.0-98.0); Mean Platelet Volume 8.6 fL (7.4-10.4); Platelet Count 282 thou/uL (130-400); RBC Distribution Width 15.9 % (11.5-14.5); Red Blood Cell (RBC) Count 3.56 mill/uL (4.20-5.40); White Blood Cell (WBC) Count 17.1 thou/uL (4.8-10.8)
[2021-03-29] MEDS: Sodium Chloride 0.65% Nasal 44 ML BOT EA NARE SCH ×4 (05:33→23:27)
[2021-03-29 05:52] LABS: Band 10 % (5-11); Lymphocytes 6 % (21-51); MDiff Complete? YES; Metamyelocyte 3 % (0-0); Monocytes 3 % (0-10); Neutrophil 78 % (42-75)
[2021-03-29 05:56] LABS: Anion Gap 15 mmol/L (10-20); BUN (Urea Nitrogen) 34 mg/dL (7.0-18.7); Calc. Creatinine Clearance 210 mL/min (70-130); Calcium 8.2 mg/dL (7.8-10.44); Carbon Dioxide 24 mmol/L (22-29); Chloride 101 mmol/L (98-107); Glucose 131 mg/dL (70-105); Potassium 4.2 mmol/L (3.5-5.1); Sodium 136 mmol/L (136-145)
[2021-03-29] MEDS: Enoxaparin Sodium 40 MG/0.4 ML SYRINGE SC SCH ×2 (08:26→20:19)
[2021-03-29] MEDS: Zinc Sulfate 220 MG CAP PO SCH (08:27)
[2021-03-29] MEDS: Aluminum & Magnesium Hydroxide 60 ML, Lidocaine 2% Viscous Solution 30 ML, diphenhydrAM... SSW SCH ×3 (08:27→16:39)
[2021-03-29] MEDS: Spironolactone 25 MG TAB PO SCH (08:27)
[2021-03-29] MEDS: Cholecalciferol 1,000 UNITS (25 MCG) TAB PO SCH (08:28)
[2021-03-29] MEDS: Aspirin 81 mg Enteric Coated Tablet PO SCH (08:28)
[2021-03-29] MEDS: Furosemide 20 MG TAB PO SCH (08:28)
[2021-03-29] MEDS: Ascorbic Acid 500 mg Chewable Tablet PO SCH (08:28)
[2021-03-29] MEDS: Acetaminophen 500 MG TAB PO PRN (23:28)
[2021-03-30] MEDS: Acyclovir Sodium 260 MG in Sodium Chloride 0.9% 100 ML IVPB SCH ×3 (03:55→19:56)
[2021-03-30 05:07] LABS: #Eosinphils 0.2 thou/uL (0.0-0.7); #Lymphocytes 1.4 thou/uL (1.20-3.40); #Monocytes 0.4 thou/uL (0.11-0.59); #Neutrophils 13.3 thou/uL (1.40-6.50); %Basophils 0.2 % (0.0-1.0); %Eosinophils 1.5 % (0.0-10.0); %Lymphocytes 8.8 % (21.0-51.0); %Monocytes 2.9 % (0.0-10.0); %Neutrophils 86.6 % (42.0-75.0); Hemoglobin 9.6 g/dL (12.0-16.0); Mean Corpuscular Hemoglobin 29.7 pg (27.0-31.0); Mean Corpuscular Volume 90.1 fL (78.0-98.0); Mean Platelet Volume 8.4 fL (7.4-10.4); Platelet Count 279 thou/uL (130-400); RBC Distribution Width 15.9 % (11.5-14.5); Red Blood Cell (RBC) Count 3.24 mill/uL (4.20-5.40); White Blood Cell (WBC) Count 15.3 thou/uL (4.8-10.8)
[2021-03-30 05:36] LABS: Anion Gap 14 mmol/L (10-20); BUN (Urea Nitrogen) 34 mg/dL (7.0-18.7); Calc. Creatinine Clearance 205 mL/min (70-130); Calcium 8.1 mg/dL (7.8-10.44); Carbon Dioxide 25 mmol/L (22-29); Chloride 100 mmol/L (98-107); Glucose 194 mg/dL (70-105); Potassium 4.2 mmol/L (3.5-5.1); Sodium 135 mmol/L (136-145)
[2021-03-30] MEDS: Sodium Chloride 0.65% Nasal 44 ML BOT EA NARE SCH ×4 (06:02→23:41)
[2021-03-30] MEDS: Ascorbic Acid 500 mg Chewable Tablet PO SCH (09:43)
[2021-03-30] MEDS: Aspirin 81 mg Enteric Coated Tablet PO SCH (09:44)
[2021-03-30] MEDS: Cholecalciferol 1,000 UNITS (25 MCG) TAB PO SCH (09:44)
[2021-03-30] MEDS: Spironolactone 25 MG TAB PO SCH (09:44)
[2021-03-30] MEDS: Furosemide 20 MG TAB PO SCH (09:44)
[2021-03-30] MEDS: Zinc Sulfate 220 MG CAP PO SCH (09:44)
[2021-03-30] MEDS: Enoxaparin Sodium 40 MG/0.4 ML SYRINGE SC SCH ×2 (09:45→20:00)
[2021-03-30] MEDS: Aluminum & Magnesium Hydroxide 60 ML, Lidocaine 2% Viscous Solution 30 ML, diphenhydrAM... SSW SCH ×3 (09:49→17:22)
[2021-03-30] MEDS: Acetaminophen 500 MG TAB PO PRN (20:00)
[2021-03-31] MEDS: Acyclovir Sodium 260 MG in Sodium Chloride 0.9% 100 ML IVPB SCH (03:42)
[2021-03-31 05:37] LABS: #Eosinphils 0.4 thou/uL (0.0-0.7); #Lymphocytes 1.2 thou/uL (1.20-3.40); #Monocytes 0.4 thou/uL (0.11-0.59); #Neutrophils 9.8 thou/uL (1.40-6.50); %Basophils 0.2 % (0.0-1.0); %Lymphocytes 10.1 % (21.0-51.0); %Monocytes 3.4 % (0.0-10.0); %Neutrophils 83.4 % (42.0-75.0); Mean Corpuscular HGB CONC 32.1 g/dL (32.0-36.0); Mean Corpuscular Hemoglobin 29.7 pg (27.0-31.0); Mean Corpuscular Volume 92.6 fL (78.0-98.0); Mean Platelet Volume 8.5 fL (7.4-10.4); Platelet Count 242 thou/uL (130-400); RBC Distribution Width 16.3 % (11.5-14.5); Red Blood Cell (RBC) Count 3.01 mill/uL (4.20-5.40); White Blood Cell (WBC) Count 11.7 thou/uL (4.8-10.8)
[2021-03-31] MEDS: Sodium Chloride 0.65% Nasal 44 ML BOT EA NARE SCH ×4 (06:11→23:55)
[2021-03-31 06:13] LABS: Anion Gap 12 mmol/L (10-20); BUN (Urea Nitrogen) 27 mg/dL (7.0-18.7); Calc. Creatinine Clearance 210 mL/min (70-130); Carbon Dioxide 28 mmol/L (22-29); Chloride 100 mmol/L (98-107); Glucose 139 mg/dL (70-105); Potassium 4.4 mmol/L (3.5-5.1); Sodium 136 mmol/L (136-145)
[2021-03-31] MEDS: Ascorbic Acid 500 mg Chewable Tablet PO SCH (07:55)
[2021-03-31] MEDS: Enoxaparin Sodium 40 MG/0.4 ML SYRINGE SC SCH ×2 (07:55→20:16)
[2021-03-31] MEDS: Zinc Sulfate 220 MG CAP PO SCH (07:56)
[2021-03-31] MEDS: Lorazepam 0.5 MG TAB PO PRN (07:56)
[2021-03-31] MEDS: Furosemide 20 MG TAB PO SCH (07:56)
[2021-03-31] MEDS: Spironolactone 25 MG TAB PO SCH (07:56)
[2021-03-31] MEDS: Aspirin 81 mg Enteric Coated Tablet PO SCH (07:56)
[2021-03-31] MEDS: Cholecalciferol 1,000 UNITS (25 MCG) TAB PO SCH (07:56)
[2021-03-31 08:38] LABS: HSV 1 - DNA Positive (Negative); HSV 2 - DNA Negative (Negative)
[2021-03-31 08:44] LABS: Actual Bicarbonate (HCO3a) 33.1 mEq/L (22-28); Base Excess (BEa) 3.9 mEq/L (-2.0 to +3.0); Calcium, Ionized (arterial) 1.14 mmol/L (1.12-1.30); Carboxyhemoglobin (COHb) 1.2 gm% (0.0-3.0); Hemoglobin (Hb) 10.5 g/dL (12.0-16.0); Potassium - ABG Lab 4.12 mmol/L (3.70-5.30)
[2021-03-31 08:47] LABS: CO2 Tension 80.1 mmHg (35.0-45.0); Puncture Site RRA; pH, Arterial 7.23 (7.35-7.45)
[2021-03-31] MEDS: Aluminum & Magnesium Hydroxide 60 ML, Lidocaine 2% Viscous Solution 30 ML, diphenhydrAM... SSW SCH ×3 (08:47→19:19)
[2021-04-01] MEDS: Sodium Chloride 0.65% Nasal 44 ML BOT EA NARE SCH ×3 (04:05→16:52)
[2021-04-01 08:02] LABS: Anion Gap 15 mmol/L (10-20); BUN (Urea Nitrogen) 20 mg/dL (7.0-18.7); CRP (Inflammatory) 6.41 mg/dL (= or < 0.5); Calc. Creatinine Clearance 244 mL/min (70-130); Carbon Dioxide 29 mmol/L (22-29); Chloride 98 mmol/L (98-107); Glucose 156 mg/dL (70-105); Potassium 4.6 mmol/L (3.5-5.1); Sodium 137 mmol/L (136-145)
[2021-04-01 09:41] LABS: Hemoglobin 9.7 g/dL (12.0-16.0); Mean Corpuscular HGB CONC 32.2 g/dL (32.0-36.0); Mean Corpuscular Hemoglobin 30.3 pg (27.0-31.0); Mean Platelet Volume 9.3 fL (7.4-10.4); Platelet Count 228 thou/uL (130-400); White Blood Cell (WBC) Count 12.1 thou/uL (4.8-10.8)
[2021-04-01 09:42] LABS: Band 2 % (5-11); Eosinophils 8 % (0-10); Hypersemented Neutrophil SLIGHT; Lymphocytes 12 % (21-51); MDiff Complete? YES; Monocytes 14 % (0-10); Neutrophil 62 % (42-75); Nucleated RBC 2 % (0); Platelet Morphology Comment Appears Adequate; Polychromasia SLIGHT = 2-3 cells (100X) (0-2/hpf)
[2021-04-01] MEDS: Aspirin 81 mg Enteric Coated Tablet PO SCH (10:05)
[2021-04-01] MEDS: Ascorbic Acid 500 mg Chewable Tablet PO SCH (10:05)
[2021-04-01] MEDS: Spironolactone 25 MG TAB PO SCH (10:05)
[2021-04-01] MEDS: Enoxaparin Sodium 40 MG/0.4 ML SYRINGE SC SCH ×2 (10:05→20:15)
[2021-04-01] MEDS: Zinc Sulfate 220 MG CAP PO SCH (10:05)
[2021-04-01] MEDS: Cholecalciferol 1,000 UNITS (25 MCG) TAB PO SCH (10:06)
[2021-04-01] MEDS: Furosemide 20 MG TAB PO SCH (10:06)
[2021-04-01] MEDS: Aluminum & Magnesium Hydroxide 60 ML, Lidocaine 2% Viscous Solution 30 ML, diphenhydrAM... SSW SCH ×3 (11:42→16:52)
[2021-04-01] MEDS: valACYclovir 500 MG TAB PO SCH (20:15)
[2021-04-01] MEDS: Melatonin 3 MG TAB PO PRN (20:15)
[2021-04-01] MEDS: Acetaminophen 500 MG TAB PO PRN (20:16)
[2021-04-02] MEDS: Sodium Chloride 0.65% Nasal 44 ML BOT EA NARE SCH ×5 (00:24→23:34)
[2021-04-02 04:00] LABS: Analyzer IN Cardio ER; Base Excess 10.9 mEq/L (-2.0 to +3.0); Calcium, Ionized (venous) 1.01 mmol/L (1.16-1.32); Chloride (VBG) 95 mmol/L (98-106); Potassium (VBG) 4.38 mmol/L (3.70-5.30); Sodium 132.8 mmol/L (133-146)
[2021-04-02 04:02] LABS: Actual Bicarbonate (HCO3v) 36 mEq/L (22-28)
[2021-04-02 04:13] LABS: #Eosinphils 0.4 thou/uL (0.0-0.7); #Lymphocytes 1.8 thou/uL (1.20-3.40); #Monocytes 0.6 thou/uL (0.11-0.59); #Neutrophils 8.5 thou/uL (1.40-6.50); %Basophils 0.2 % (0.0-1.0); %Eosinophils 3.2 % (0.0-10.0); %Lymphocytes 15.7 % (21.0-51.0); %Monocytes 5.1 % (0.0-10.0); %Neutrophils 75.8 % (42.0-75.0); Hemoglobin 8.9 g/dL (12.0-16.0); Mean Corpuscular HGB CONC 32.5 g/dL (32.0-36.0); Mean Corpuscular Hemoglobin 30.5 pg (27.0-31.0); Mean Corpuscular Volume 93.7 fL (78.0-98.0); Mean Platelet Volume 8.4 fL (7.4-10.4); Platelet Count 207 thou/uL (130-400); RBC Distribution Width 15.9 % (11.5-14.5); Red Blood Cell (RBC) Count 2.93 mill/uL (4.20-5.40); White Blood Cell (WBC) Count 11.2 thou/uL (4.8-10.8)
[2021-04-02 04:29] LABS: Anion Gap 14 mmol/L (10-20); BUN (Urea Nitrogen) 21 mg/dL (7.0-18.7); Calc. Creatinine Clearance 244 mL/min (70-130); Calcium 8.7 mg/dL (7.8-10.44); Carbon Dioxide 37 mmol/L (22-29); Chloride 92 mmol/L (98-107); Glucose 108 mg/dL (70-105); Potassium 4.5 mmol/L (3.5-5.1); Sodium 138 mmol/L (136-145)
[2021-04-02] MEDS: Furosemide 20 MG TAB PO SCH (09:19)
[2021-04-02] MEDS: Enoxaparin Sodium 40 MG/0.4 ML SYRINGE SC SCH ×2 (09:19→21:08)
[2021-04-02] MEDS: valACYclovir 500 MG TAB PO SCH ×2 (09:19→21:08)
[2021-04-02] MEDS: Spironolactone 25 MG TAB PO SCH (09:20)
[2021-04-02] MEDS: Aluminum & Magnesium Hydroxide 60 ML, Lidocaine 2% Viscous Solution 30 ML, diphenhydrAM... SSW SCH ×3 (09:20→17:11)
[2021-04-02] MEDS: Zinc Sulfate 220 MG CAP PO SCH (09:20)
[2021-04-02] MEDS: Ascorbic Acid 500 mg Chewable Tablet PO SCH (09:20)
[2021-04-02] MEDS: Cholecalciferol 1,000 UNITS (25 MCG) TAB PO SCH (09:20)
[2021-04-02] MEDS: Aspirin 81 mg Enteric Coated Tablet PO SCH (09:20)
[2021-04-02] MEDS: Lorazepam 0.5 MG TAB PO PRN (23:33)
[2021-04-03] MEDS: Melatonin 3 MG TAB PO PRN ×2 (03:21→20:19)
[2021-04-03] MEDS: Lorazepam 0.5 MG TAB PO PRN ×3 (03:21→20:19)
[2021-04-03] MEDS: Sodium Chloride 0.65% Nasal 44 ML BOT EA NARE SCH ×3 (06:10→18:08)
[2021-04-03] MEDS: Zinc Sulfate 220 MG CAP PO SCH (09:08)
[2021-04-03] MEDS: Aspirin 81 mg Enteric Coated Tablet PO SCH (09:08)
[2021-04-03] MEDS: Furosemide 20 MG TAB PO SCH (09:08)
[2021-04-03] MEDS: Enoxaparin Sodium 40 MG/0.4 ML SYRINGE SC SCH ×2 (09:08→20:20)
[2021-04-03] MEDS: Ascorbic Acid 500 mg Chewable Tablet PO SCH (09:09)
[2021-04-03] MEDS: Spironolactone 25 MG TAB PO SCH (09:09)
[2021-04-03] MEDS: Cholecalciferol 1,000 UNITS (25 MCG) TAB PO SCH (09:09)
[2021-04-03] MEDS: valACYclovir 500 MG TAB PO SCH ×2 (09:09→20:19)
[2021-04-03] MEDS: Aluminum & Magnesium Hydroxide 60 ML, Lidocaine 2% Viscous Solution 30 ML, diphenhydrAM... SSW SCH ×3 (09:09→18:08)
[2021-04-03] MEDS ORDERED: Lorazepam 0.5 MG TAB ONE (20:10)
[2021-04-03] MEDS ORDERED: Melatonin 3 MG TAB ONE (20:10)
[2021-04-04] MEDS: Sodium Chloride 0.65% Nasal 44 ML BOT EA NARE SCH ×4 (00:02→19:02)
[2021-04-04] MEDS: Cholecalciferol 1,000 UNITS (25 MCG) TAB PO SCH (09:28)
[2021-04-04] MEDS: Aspirin 81 mg Enteric Coated Tablet PO SCH (09:28)
[2021-04-04] MEDS: Zinc Sulfate 220 MG CAP PO SCH (09:28)
[2021-04-04] MEDS: valACYclovir 500 MG TAB PO SCH ×2 (09:28→21:30)
[2021-04-04] MEDS: Ascorbic Acid 500 mg Chewable Tablet PO SCH (09:28)
[2021-04-04] MEDS: Furosemide 20 MG TAB PO SCH (09:28)
[2021-04-04] MEDS: Spironolactone 25 MG TAB PO SCH (09:28)
[2021-04-04] MEDS: Enoxaparin Sodium 40 MG/0.4 ML SYRINGE SC SCH ×2 (09:28→21:30)
[2021-04-04] MEDS: Aluminum & Magnesium Hydroxide 60 ML, Lidocaine 2% Viscous Solution 30 ML, diphenhydrAM... SSW SCH ×3 (09:29→19:02)
[2021-04-04] MEDS: Benzonatate 100 MG CAP PO PRN (21:32)
[2021-04-05] MEDS: Sodium Chloride 0.65% Nasal 44 ML BOT EA NARE SCH ×5 (00:44→23:21)
[2021-04-05] MEDS: Enoxaparin Sodium 40 MG/0.4 ML SYRINGE SC SCH ×2 (10:01→22:20)
[2021-04-05] MEDS: Aspirin 81 mg Enteric Coated Tablet PO SCH (10:02)
[2021-04-05] MEDS: Cholecalciferol 1,000 UNITS (25 MCG) TAB PO SCH (10:02)
[2021-04-05] MEDS: Spironolactone 25 MG TAB PO SCH (10:02)
[2021-04-05] MEDS: valACYclovir 500 MG TAB PO SCH ×2 (10:02→22:18)
[2021-04-05] MEDS: Ascorbic Acid 500 mg Chewable Tablet PO SCH (10:02)
[2021-04-05] MEDS: Zinc Sulfate 220 MG CAP PO SCH (10:02)
[2021-04-05] MEDS: Furosemide 20 MG TAB PO SCH (10:02)
[2021-04-05] MEDS: Aluminum & Magnesium Hydroxide 60 ML, Lidocaine 2% Viscous Solution 30 ML, diphenhydrAM... SSW SCH ×3 (10:03→18:15)
[2021-04-05] MEDS: Lorazepam 0.5 MG TAB PO PRN (18:49)
[2021-04-06] MEDS: Sodium Chloride 0.65% Nasal 44 ML BOT EA NARE SCH ×4 (06:07→23:08)
[2021-04-06] MEDS: Furosemide 20 MG TAB PO SCH (08:31)
[2021-04-06] MEDS: Spironolactone 25 MG TAB PO SCH (08:31)
[2021-04-06] MEDS: Aspirin 81 mg Enteric Coated Tablet PO SCH (08:31)
[2021-04-06] MEDS: Zinc Sulfate 220 MG CAP PO SCH (08:31)
[2021-04-06] MEDS: Ascorbic Acid 500 mg Chewable Tablet PO SCH (08:32)
[2021-04-06] MEDS: valACYclovir 500 MG TAB PO SCH ×2 (08:32→19:51)
[2021-04-06] MEDS: Aluminum & Magnesium Hydroxide 60 ML, Lidocaine 2% Viscous Solution 30 ML, diphenhydrAM... SSW SCH ×3 (08:32→16:19)
[2021-04-06] MEDS: Enoxaparin Sodium 40 MG/0.4 ML SYRINGE SC SCH ×2 (08:32→19:49)
[2021-04-06] MEDS: Cholecalciferol 1,000 UNITS (25 MCG) TAB PO SCH (08:32)
[2021-04-06] MEDS: Acetaminophen 500 MG TAB PO PRN (19:48)
[2021-04-06] MEDS: Lorazepam 0.5 MG TAB PO PRN (19:49)
[2021-04-07] MEDS: Sodium Chloride 0.65% Nasal 44 ML BOT EA NARE SCH ×4 (05:31→23:05)
[2021-04-07] MEDS: Furosemide 20 MG TAB PO SCH (08:39)
[2021-04-07] MEDS: Spironolactone 25 MG TAB PO SCH (08:39)
[2021-04-07] MEDS: Enoxaparin Sodium 40 MG/0.4 ML SYRINGE SC SCH ×2 (08:39→20:23)
[2021-04-07] MEDS: Zinc Sulfate 220 MG CAP PO SCH (08:39)
[2021-04-07] MEDS: Aspirin 81 mg Enteric Coated Tablet PO SCH (08:39)
[2021-04-07] MEDS: Ascorbic Acid 500 mg Chewable Tablet PO SCH (08:39)
[2021-04-07] MEDS: Cholecalciferol 1,000 UNITS (25 MCG) TAB PO SCH (08:39)
[2021-04-07] MEDS: valACYclovir 500 MG TAB PO SCH ×2 (08:39→20:23)
[2021-04-07] MEDS: Aluminum & Magnesium Hydroxide 60 ML, Lidocaine 2% Viscous Solution 30 ML, diphenhydrAM... SSW SCH ×3 (08:40→15:10)
[2021-04-07] MEDS: Acetaminophen 500 MG TAB PO PRN (16:49)
[2021-04-07] MEDS: Docusate 100 MG CAP PO PRN (20:23)
[2021-04-08] MEDS: Sodium Chloride 0.65% Nasal 44 ML BOT EA NARE SCH ×4 (03:57→23:52)
[2021-04-08] MEDS: Aspirin 81 mg Enteric Coated Tablet PO SCH (09:27)
[2021-04-08] MEDS: Spironolactone 25 MG TAB PO SCH (09:27)
[2021-04-08] MEDS: Furosemide 20 MG TAB PO SCH (09:27)
[2021-04-08] MEDS: Zinc Sulfate 220 MG CAP PO SCH (09:27)
[2021-04-08] MEDS: Cholecalciferol 1,000 UNITS (25 MCG) TAB PO SCH (09:28)
[2021-04-08] MEDS: Aluminum & Magnesium Hydroxide 60 ML, Lidocaine 2% Viscous Solution 30 ML, diphenhydrAM... SSW SCH ×3 (09:28→16:56)
[2021-04-08] MEDS: Enoxaparin Sodium 40 MG/0.4 ML SYRINGE SC SCH ×2 (09:28→21:03)
[2021-04-08] MEDS: Ascorbic Acid 500 mg Chewable Tablet PO SCH (09:28)
[2021-04-08] MEDS: Lorazepam 0.5 MG TAB PO PRN (23:29)
[2021-04-08] MEDS ORDERED: Lorazepam 2 MG/ML VIAL SLOW IVP PRN (23:57)
[2021-04-09 00:12] LABS: Actual Bicarbonate (HCO3a) 60.8 mEq/L (22-28); Calcium, Ionized (arterial) 1.12 mmol/L (1.12-1.30); Carboxyhemoglobin (COHb) 3.4 gm% (0.0-3.0); Hemoglobin (Hb) 9.9 g/dL (12.0-16.0); O2 Tension (PaO2), arterial 67.3 mmHg (80.0-100.0); Potassium - ABG Lab 4.17 mmol/L (3.70-5.30); pH, Arterial 7.35 (7.35-7.45)
[2021-04-09 00:29] LABS: Base Excess (BEa) 30.1 mEq/L (-2.0 to +3.0); CO2 Tension 111.8 mmHg (35.0-45.0); Puncture Site RR
[2021-04-09 03:11] LABS: Actual Bicarbonate (HCO3a) 66.9 mEq/L (22-28); Calcium, Ionized (arterial) 1.13 mmol/L (1.12-1.30); Carboxyhemoglobin (COHb) 4.1 gm% (0.0-3.0); Hemoglobin (Hb) 9.4 g/dL (12.0-16.0); O2 Tension (PaO2), arterial 68.8 mmHg (80.0-100.0); Potassium - ABG Lab 4.21 mmol/L (3.70-5.30); pH, Arterial 7.32 (7.35-7.45)
[2021-04-09 03:14] LABS: CO2 Tension 134.4 mmHg (35.0-45.0); Puncture Site RR
[2021-04-09 04:56] LABS: Actual Bicarbonate (HCO3a) 68.1 mEq/L (22-28); Calcium, Ionized (arterial) 1.11 mmol/L (1.12-1.30); Carboxyhemoglobin (COHb) 3.9 gm% (0.0-3.0); Hemoglobin (Hb) 9.4 g/dL (12.0-16.0); O2 Tension (PaO2), arterial 74.5 mmHg (80.0-100.0); Potassium - ABG Lab 4.19 mmol/L (3.70-5.30); pH, Arterial 7.34 (7.35-7.45)
[2021-04-09 04:57] LABS: Base Excess (BEa) 36.5 mEq/L (-2.0 to +3.0); CO2 Tension 129.1 mmHg (35.0-45.0)
[2021-04-09 04:58] LABS: ALV-art Gradient 49.325 mmHg (0-20); Puncture Site LRA
[2021-04-09 05:16] LABS: ALT (SGPT) 47 U/L (8-55); AST (SGOT) 32 U/L (5-34); Albumin 3.4 g/dL (3.5-5.0); Alkaline Phosphatase 91 U/L (40-110); BUN (Urea Nitrogen) 29 mg/dL (7.0-18.7); Bilirubin, Total 1.4 mg/dL (0.2-1.2); Calc. Creatinine Clearance 259 mL/min (70-130); Globulin 3.6 g/dL (2.4-3.5); Glucose 119 mg/dL (70-105)
[2021-04-09 05:29] LABS: Chloride 86 mmol/L (98-107); Potassium 4.5 mmol/L (3.5-5.1); Sodium 145 mmol/L (136-145)
[2021-04-09 05:33] LABS: Hemoglobin 9.2 g/dL (12.0-16.0); Mean Corpuscular HGB CONC 31.2 g/dL (32.0-36.0); Mean Corpuscular Hemoglobin 31.8 pg (27.0-31.0); Mean Platelet Volume 8.4 fL (7.4-10.4); Platelet Count 124 thou/uL (130-400); RBC Distribution Width 20.8 % (11.5-14.5); White Blood Cell (WBC) Count 5.8 thou/uL (4.8-10.8)
[2021-04-09 05:34] LABS: Band 16 % (5-11); Eosinophils 5 % (0-10); Lymphocytes 13 % (21-51); MDiff Complete? YES; Macrocytosis SLIGHT = 6-15 cells (100X) (0-5/hpf); Metamyelocyte 2 % (0-0); Monocytes 9 % (0-10); Myelocyte 2 % (0-0); Neutrophil 53 % (42-75); Nucleated RBC 3 % (0); Polychromasia MODERATE = 3-4 cells (100X) (0-2/hpf)
[2021-04-09 05:56] LABS: Anion Gap 19 mmol/L (10-20); Carbon Dioxide 45 mmol/L (22-29)
[2021-04-09 06:22] LABS: Bacteria/HPF 4+ HPF (None Seen); Bilirubin Negative (Negative); Blood, Urine Negative (Negative); Clarity Turbid (Clear); Glucose, Urine (Dipstick) Normal (Negative); Ketone, Urine Negative (Negative); Leukocyte Negative Leu/uL (Negative); Nitrite 2+ (Negative); Protein, Urine (Dipstick) 30 mg/dL (Neg-Trace); RBC/HPF 0-3 HPF (0-3); Specific Gravity, Urine 1.021 (1.002-1.036); Squamous Epithelial 0-3 HPF (0-3); Urobilinogen 6 mg/dL (Less than 2); pH, Urine 7.5 (5.0-9.0)
[2021-04-09] MEDS: Sodium Chloride 0.65% Nasal 44 ML BOT EA NARE SCH ×3 (06:34→18:31)
[2021-04-09] MEDS: Furosemide 20 MG/2 ML VIAL SLOW IVP SCH (06:34)
[2021-04-09] MEDS: Ascorbic Acid 500 mg Chewable Tablet PO SCH (07:57)
[2021-04-09] MEDS: Cholecalciferol 1,000 UNITS (25 MCG) TAB PO SCH (07:57)
[2021-04-09] MEDS: Aspirin 81 mg Enteric Coated Tablet PO SCH (07:57)
[2021-04-09] MEDS: Enoxaparin Sodium 40 MG/0.4 ML SYRINGE SC SCH ×2 (07:57→20:31)
[2021-04-09] MEDS: Aluminum & Magnesium Hydroxide 60 ML, Lidocaine 2% Viscous Solution 30 ML, diphenhydrAM... SSW SCH ×3 (07:57→18:31)
[2021-04-09] MEDS: Zinc Sulfate 220 MG CAP PO SCH (07:57)
[2021-04-09] MEDS: acetaZOLAMIDE Sodium 500 MG in Sodium Chloride 0.9% 50 ML IVPB SCH ×2 (08:40→20:30)
[2021-04-10] MEDS: Sodium Chloride 0.65% Nasal 44 ML BOT EA NARE SCH ×5 (00:07→23:19)
[2021-04-10] MEDS: Furosemide 20 MG/2 ML VIAL SLOW IVP SCH (08:14)
[2021-04-10] MEDS: Cholecalciferol 1,000 UNITS (25 MCG) TAB PO SCH (10:19)
[2021-04-10] MEDS: Zinc Sulfate 220 MG CAP PO SCH (10:19)
[2021-04-10] MEDS: acetaZOLAMIDE Sodium 500 MG in Sodium Chloride 0.9% 50 ML IVPB SCH ×2 (10:19→20:17)
[2021-04-10] MEDS: Enoxaparin Sodium 40 MG/0.4 ML SYRINGE SC SCH ×2 (10:19→20:16)
[2021-04-10] MEDS: Ascorbic Acid 500 mg Chewable Tablet PO SCH (10:19)
[2021-04-10] MEDS: Aspirin 81 mg Enteric Coated Tablet PO SCH (10:19)
[2021-04-10] MEDS: Aluminum & Magnesium Hydroxide 60 ML, Lidocaine 2% Viscous Solution 30 ML, diphenhydrAM... SSW SCH ×3 (10:26→18:43)
[2021-04-10 12:34] LABS: BUN (Urea Nitrogen) 26 mg/dL (7.0-18.7); Calc. Creatinine Clearance 256 mL/min (70-130); Calcium 8.8 mg/dL (7.8-10.44); Glucose 119 mg/dL (70-105)
[2021-04-10 12:43] LABS: Anion Gap 11 mmol/L (10-20); Chloride 90 mmol/L (98-107); Potassium 3.7 mmol/L (3.5-5.1); Sodium 142 mmol/L (136-145)
[2021-04-10 12:47] LABS: Carbon Dioxide 45 mmol/L (22-29)
[2021-04-11] MEDS: Sodium Chloride 0.65% Nasal 44 ML BOT EA NARE SCH ×3 (05:54→17:55)
[2021-04-11] MEDS: acetaZOLAMIDE Sodium 500 MG in Sodium Chloride 0.9% 50 ML IVPB SCH ×2 (08:59→21:21)
[2021-04-11] MEDS: Aspirin 81 mg Enteric Coated Tablet PO SCH (09:00)
[2021-04-11] MEDS: Enoxaparin Sodium 40 MG/0.4 ML SYRINGE SC SCH ×2 (09:00→21:21)
[2021-04-11] MEDS: Zinc Sulfate 220 MG CAP PO SCH (09:00)
[2021-04-11] MEDS: Cholecalciferol 1,000 UNITS (25 MCG) TAB PO SCH (09:00)
[2021-04-11] MEDS: Ascorbic Acid 500 mg Chewable Tablet PO SCH (09:00)
[2021-04-11] MEDS: Aluminum & Magnesium Hydroxide 60 ML, Lidocaine 2% Viscous Solution 30 ML, diphenhydrAM... SSW SCH ×3 (09:00→17:55)
[2021-04-11 09:17] LABS: Actual Bicarbonate (HCO3a) 44.5 mEq/L (22-28); Base Excess (BEa) 16.1 mEq/L (-2.0 to +3.0); Calcium, Ionized (arterial) 1.12 mmol/L (1.12-1.30); Hemoglobin (Hb) 9.7 g/dL (12.0-16.0); O2 Tension (PaO2), arterial 62.3 mmHg (80.0-100.0); Potassium - ABG Lab 3.04 mmol/L (3.70-5.30); pH, Arterial 7.35 (7.35-7.45)
[2021-04-11 09:43] LABS: Anion Gap 16 mmol/L (10-20); BUN (Urea Nitrogen) 25 mg/dL (7.0-18.7); Calc. Creatinine Clearance 268 mL/min (70-130); Calcium 8.4 mg/dL (7.8-10.44); Carbon Dioxide 34 mmol/L (22-29); Chloride 95 mmol/L (98-107); Glucose 111 mg/dL (70-105); Potassium 3.7 mmol/L (3.5-5.1); Sodium 141 mmol/L (136-145)
[2021-04-11 10:53] LABS: Puncture Site LRA
[2021-04-12] MEDS: Sodium Chloride 0.65% Nasal 44 ML BOT EA NARE SCH ×4 (00:17→17:11)
[2021-04-12] MEDS: Aluminum & Magnesium Hydroxide 60 ML, Lidocaine 2% Viscous Solution 30 ML, diphenhydrAM... SSW SCH ×3 (09:35→17:11)
[2021-04-12] MEDS: Aspirin 81 mg Enteric Coated Tablet PO SCH (09:36)
[2021-04-12] MEDS: Ascorbic Acid 500 mg Chewable Tablet PO SCH (09:36)
[2021-04-12] MEDS: AcetaZOLAMIDE 250 MG TAB PO SCH ×2 (09:36→21:12)
[2021-04-12] MEDS: Enoxaparin Sodium 40 MG/0.4 ML SYRINGE SC SCH ×2 (09:36→21:12)
[2021-04-12] MEDS: Cholecalciferol 1,000 UNITS (25 MCG) TAB PO SCH (09:36)
[2021-04-12] MEDS: Zinc Sulfate 220 MG CAP PO SCH (09:36)
[2021-04-13] MEDS: Sodium Chloride 0.65% Nasal 44 ML BOT EA NARE SCH ×4 (00:37→18:02)
[2021-04-13 04:39] LABS: BUN (Urea Nitrogen) 28 mg/dL (7.0-18.7); Calc. Creatinine Clearance 240 mL/min (70-130); Calcium 8.8 mg/dL (7.8-10.44); Glucose 121 mg/dL (70-105)
[2021-04-13 04:48] LABS: Chloride 95 mmol/L (98-107); Potassium 3.2 mmol/L (3.5-5.1); Sodium 144 mmol/L (136-145)
[2021-04-13 04:51] LABS: Anion Gap 12 mmol/L (10-20); Carbon Dioxide 40 mmol/L (22-29)
[2021-04-13] MEDS: Aspirin 81 mg Enteric Coated Tablet PO SCH (10:04)
[2021-04-13] MEDS: Cholecalciferol 1,000 UNITS (25 MCG) TAB PO SCH (10:04)
[2021-04-13] MEDS: Ascorbic Acid 500 mg Chewable Tablet PO SCH (10:04)
[2021-04-13] MEDS: AcetaZOLAMIDE 250 MG TAB PO SCH ×2 (10:04→21:46)
[2021-04-13] MEDS: Zinc Sulfate 220 MG CAP PO SCH (10:04)
[2021-04-13] MEDS: Aluminum & Magnesium Hydroxide 60 ML, Lidocaine 2% Viscous Solution 30 ML, diphenhydrAM... SSW SCH ×3 (10:05→18:02)
[2021-04-13] MEDS: Enoxaparin Sodium 40 MG/0.4 ML SYRINGE SC SCH ×2 (10:05→21:46)
[2021-04-13] MEDS: Docusate 100 MG CAP PO PRN (18:02)
[2021-04-14] MEDS: Sodium Chloride 0.65% Nasal 44 ML BOT EA NARE SCH ×5 (00:10→23:43)
[2021-04-14 01:41] LABS: Bilirubin Negative (Negative); Blood, Urine 2+ (Negative); Glucose, Urine (Dipstick) Normal (Negative); Ketone, Urine Negative (Negative); Leukocyte 250 Leu/uL (Negative); Nitrite Negative (Negative); Protein, Urine (Dipstick) 30 mg/dL (Neg-Trace); Squamous Epithelial None Seen HPF (0-3); Urobilinogen 12 mg/dL (Less than 2); pH, Urine 7.5 (5.0-9.0)
[2021-04-14 01:51] LABS: Bacteria/HPF 1+ HPF (None Seen); Clarity Turbid (Clear)
[2021-04-14 04:32] LABS: BUN (Urea Nitrogen) 28 mg/dL (7.0-18.7); Calc. Creatinine Clearance 256 mL/min (70-130); Calcium 9.1 mg/dL (7.8-10.44); Glucose 157 mg/dL (70-105)
[2021-04-14 04:36] LABS: Band 9 % (5-11); Hemoglobin 9.5 g/dL (12.0-16.0); Lymphocytes 20 % (21-51); MDiff Complete? YES; Macrocytosis SLIGHT = 6-15 cells (100X) (0-5/hpf); Mean Corpuscular HGB CONC 31.3 g/dL (32.0-36.0); Mean Corpuscular Hemoglobin 32.2 pg (27.0-31.0); Mean Platelet Volume 8.5 fL (7.4-10.4); Metamyelocyte 1 % (0-0); Microcytosis SLIGHT = 6-15 cells (100X) (0-5/hpf); Monocytes 8 % (0-10); Myelocyte 6 % (0-0); Neutrophil 56 % (42-75); Nucleated RBC 3 % (0); Platelet Count 185 thou/uL (130-400); Platelet Morphology Comment Appears Adequate; Polychromasia SLIGHT = 2-3 cells (100X) (0-2/hpf); RBC Distribution Width 21.6 % (11.5-14.5); Red Blood Cell (RBC) Count 2.95 mill/uL (4.20-5.40)
[2021-04-14 04:42] LABS: Anion Gap 16 mmol/L (10-20); Carbon Dioxide 33 mmol/L (22-29); Chloride 95 mmol/L (98-107); Potassium 3.1 mmol/L (3.5-5.1); Sodium 141 mmol/L (136-145)
[2021-04-14] MEDS: Enoxaparin Sodium 40 MG/0.4 ML SYRINGE SC SCH ×2 (08:41→22:04)
[2021-04-14] MEDS: Aluminum & Magnesium Hydroxide 60 ML, Lidocaine 2% Viscous Solution 30 ML, diphenhydrAM... SSW SCH ×3 (08:42→16:33)
[2021-04-14] MEDS: Ascorbic Acid 500 mg Chewable Tablet PO SCH (08:42)
[2021-04-14] MEDS: Zinc Sulfate 220 MG CAP PO SCH (08:42)
[2021-04-14] MEDS: AcetaZOLAMIDE 250 MG TAB PO SCH ×2 (08:42→22:04)
[2021-04-14] MEDS: Cholecalciferol 1,000 UNITS (25 MCG) TAB PO SCH (08:42)
[2021-04-14] MEDS: Aspirin 81 mg Enteric Coated Tablet PO SCH (08:43)
[2021-04-14] MEDS: Docusate 100 MG CAP PO PRN (13:57)
[2021-04-14] MEDS: Potassium Chloride 20 MEQ TAB PO SCH ×2 (14:47→16:33)
[2021-04-15] MEDS: Sodium Chloride 0.65% Nasal 44 ML BOT EA NARE SCH ×3 (07:24→17:30)
[2021-04-15] MEDS: Ascorbic Acid 500 mg Chewable Tablet PO SCH (09:16)
[2021-04-15] MEDS: Enoxaparin Sodium 40 MG/0.4 ML SYRINGE SC SCH ×2 (09:16→21:54)
[2021-04-15] MEDS: Aluminum & Magnesium Hydroxide 60 ML, Lidocaine 2% Viscous Solution 30 ML, diphenhydrAM... SSW SCH ×3 (09:16→17:30)
[2021-04-15] MEDS: AcetaZOLAMIDE 250 MG TAB PO SCH ×2 (09:16→21:54)
[2021-04-15] MEDS: Zinc Sulfate 220 MG CAP PO SCH (09:16)
[2021-04-15] MEDS: Aspirin 81 mg Enteric Coated Tablet PO SCH (09:16)
[2021-04-15] MEDS: Cholecalciferol 1,000 UNITS (25 MCG) TAB PO SCH (09:16)
[2021-04-16] MEDS: Sodium Chloride 0.65% Nasal 44 ML BOT EA NARE SCH ×5 (00:10→23:20)
[2021-04-16] MEDS: Docusate 100 MG CAP PO PRN ×2 (03:13→10:22)
[2021-04-16 04:27] LABS: Anion Gap 14 mmol/L (10-20); BUN (Urea Nitrogen) 25 mg/dL (7.0-18.7); Calc. Creatinine Clearance 264 mL/min (70-130); Calcium 8.1 mg/dL (7.8-10.44); Carbon Dioxide 30 mmol/L (22-29); Chloride 100 mmol/L (98-107); Glucose 173 mg/dL (70-105); Potassium 4.2 mmol/L (3.5-5.1); Sodium 140 mmol/L (136-145)
[2021-04-16] MEDS: Cholecalciferol 1,000 UNITS (25 MCG) TAB PO SCH (10:21)
[2021-04-16] MEDS: Aspirin 81 mg Enteric Coated Tablet PO SCH (10:21)
[2021-04-16] MEDS: AcetaZOLAMIDE 250 MG TAB PO SCH ×2 (10:21→21:06)
[2021-04-16] MEDS: Zinc Sulfate 220 MG CAP PO SCH (10:21)
[2021-04-16] MEDS: Aluminum & Magnesium Hydroxide 60 ML, Lidocaine 2% Viscous Solution 30 ML, diphenhydrAM... SSW SCH ×3 (10:21→16:58)
[2021-04-16] MEDS: Ascorbic Acid 500 mg Chewable Tablet PO SCH (10:21)
[2021-04-16] MEDS: Enoxaparin Sodium 40 MG/0.4 ML SYRINGE SC SCH ×2 (10:22→21:06)
[2021-04-16] MEDS: cefTRIAXone\\ROCEPHIN 1 GM in Sodium Chloride 0.9% 100 ML IVPB SCH (18:42)
[2021-04-16 21:50] LABS: Bacteria/HPF 4+ HPF (None Seen); Bilirubin Negative (Negative); Blood, Urine 3+ (Negative); Clarity Extra Turbid (Clear); Glucose, Urine (Dipstick) Normal (Negative); Ketone, Urine Negative (Negative); Leukocyte 500 Leu/uL (Negative); Mucous/LPF Rare LPF (<2+); Nitrite Negative (Negative); Protein, Urine (Dipstick) 70 mg/dL (Neg-Trace); RBC/HPF Greater than 50 HPF (0-3); Renal Epithelial 0-3 HPF (None Seen); Specific Gravity, Urine 1.015 (1.002-1.036); Squamous Epithelial 0-3 HPF (0-3); Triple Phosphate Crystal Rare HPF (None Seen); WBC/HPF Greater than 50 HPF (0-3); pH, Urine 7.5 (5.0-9.0)
[2021-04-16 21:51] LABS: Urine Culture Reflex Yes Yes
[2021-04-17] MEDS ORDERED: Fleet Enema 133 ML BOT PR SCH (03:30)
[2021-04-17] MEDS: Acetaminophen 500 MG TAB PO PRN ×2 (05:48→21:03)
[2021-04-17] MEDS: Docusate 100 MG CAP PO PRN ×2 (05:49→21:00)
[2021-04-17] MEDS: Sodium Chloride 0.65% Nasal 44 ML BOT EA NARE SCH ×4 (05:50→23:49)
[2021-04-17] MEDS: Aluminum & Magnesium Hydroxide 60 ML, Lidocaine 2% Viscous Solution 30 ML, diphenhydrAM... SSW SCH ×3 (08:20→16:44)
[2021-04-17] MEDS: Enoxaparin Sodium 40 MG/0.4 ML SYRINGE SC SCH ×2 (08:23→20:59)
[2021-04-17] MEDS: Zinc Sulfate 220 MG CAP PO SCH (08:24)
[2021-04-17] MEDS: Aspirin 81 mg Enteric Coated Tablet PO SCH (08:24)
[2021-04-17] MEDS: Ascorbic Acid 500 mg Chewable Tablet PO SCH (08:24)
[2021-04-17] MEDS: Cholecalciferol 1,000 UNITS (25 MCG) TAB PO SCH (08:24)
[2021-04-17] MEDS: AcetaZOLAMIDE 250 MG TAB PO SCH ×2 (08:24→20:59)
[2021-04-17 10:14] LABS: CO2 Tension 82.2 mmHg (35.0-45.0)
[2021-04-17] MEDS: cefTRIAXone\\ROCEPHIN 1 GM in Sodium Chloride 0.9% 100 ML IVPB SCH (17:25)
[2021-04-18] MEDS: Sodium Chloride 0.65% Nasal 44 ML BOT EA NARE SCH ×4 (05:55→23:53)
[2021-04-18] MEDS: Ascorbic Acid 500 mg Chewable Tablet PO SCH (08:01)
[2021-04-18] MEDS: Enoxaparin Sodium 40 MG/0.4 ML SYRINGE SC SCH ×2 (08:01→20:14)
[2021-04-18] MEDS: Cholecalciferol 1,000 UNITS (25 MCG) TAB PO SCH (08:01)
[2021-04-18] MEDS: Aspirin 81 mg Enteric Coated Tablet PO SCH (08:01)
[2021-04-18] MEDS: AcetaZOLAMIDE 250 MG TAB PO SCH ×2 (08:01→20:14)
[2021-04-18] MEDS: Aluminum & Magnesium Hydroxide 60 ML, Lidocaine 2% Viscous Solution 30 ML, diphenhydrAM... SSW SCH ×3 (08:01→17:01)
[2021-04-18] MEDS: Zinc Sulfate 220 MG CAP PO SCH (08:01)
[2021-04-18] MEDS: cefTRIAXone\\ROCEPHIN 1 GM in Sodium Chloride 0.9% 100 ML IVPB SCH (18:19)
[2021-04-18] MEDS: Acetaminophen 500 MG TAB PO SCH ×2 (21:19→21:22)
[2021-04-19] MEDS: Sodium Chloride 0.65% Nasal 44 ML BOT EA NARE SCH ×3 (05:37→17:11)
[2021-04-19] MEDS: Cholecalciferol 1,000 UNITS (25 MCG) TAB PO SCH (08:02)
[2021-04-19] MEDS: Zinc Sulfate 220 MG CAP PO SCH (08:02)
[2021-04-19] MEDS: Aspirin 81 mg Enteric Coated Tablet PO SCH (08:02)
[2021-04-19] MEDS: Ascorbic Acid 500 mg Chewable Tablet PO SCH (08:03)
[2021-04-19] MEDS: Enoxaparin Sodium 40 MG/0.4 ML SYRINGE SC SCH ×2 (08:03→19:56)
[2021-04-19] MEDS: AcetaZOLAMIDE 250 MG TAB PO SCH ×2 (08:03→19:56)
[2021-04-19] MEDS: Aluminum & Magnesium Hydroxide 60 ML, Lidocaine 2% Viscous Solution 30 ML, diphenhydrAM... SSW SCH ×3 (08:04→17:11)
[2021-04-19] MEDS ORDERED: Polyethylene Glycol 3350 17 GM Packet PO SCH (10:00)
[2021-04-19] MEDS: Acetaminophen 500 MG TAB PO PRN ×2 (12:18→20:04)
[2021-04-19 14:19] VITALS: BMI 54.3
[2021-04-19] MEDS: cefTRIAXone\\ROCEPHIN 1 GM in Sodium Chloride 0.9% 100 ML IVPB SCH (18:09)
[2021-04-20] MEDS: Sodium Chloride 0.65% Nasal 44 ML BOT EA NARE SCH ×5 (02:04→22:56)
[2021-04-20] MEDS: Enoxaparin Sodium 40 MG/0.4 ML SYRINGE SC SCH ×2 (07:24→20:21)
[2021-04-20] MEDS: Polyethylene Glycol 3350 17 GM Packet PO SCH (07:24)
[2021-04-20] MEDS: AcetaZOLAMIDE 250 MG TAB PO SCH ×2 (07:25→20:21)
[2021-04-20] MEDS: Aluminum & Magnesium Hydroxide 60 ML, Lidocaine 2% Viscous Solution 30 ML, diphenhydrAM... SSW SCH ×3 (07:25→16:14)
[2021-04-20] MEDS: Cholecalciferol 1,000 UNITS (25 MCG) TAB PO SCH (07:25)
[2021-04-20] MEDS: Ascorbic Acid 500 mg Chewable Tablet PO SCH (07:25)
[2021-04-20] MEDS: Aspirin 81 mg Enteric Coated Tablet PO SCH (07:25)
[2021-04-20] MEDS: Zinc Sulfate 220 MG CAP PO SCH (07:25)
[2021-04-20] MEDS: cefTRIAXone\\ROCEPHIN 1 GM in Sodium Chloride 0.9% 100 ML IVPB SCH (17:18)
[2021-04-20] MEDS: Acetaminophen 500 MG TAB PO PRN (20:21)
[2021-04-21] MEDS: Sodium Chloride 0.65% Nasal 44 ML BOT EA NARE SCH ×4 (05:38→23:24)
[2021-04-21] MEDS: Aluminum & Magnesium Hydroxide 60 ML, Lidocaine 2% Viscous Solution 30 ML, diphenhydrAM... SSW SCH ×3 (10:28→17:32)
[2021-04-21] MEDS: Enoxaparin Sodium 40 MG/0.4 ML SYRINGE SC SCH ×2 (10:29→20:37)
[2021-04-21] MEDS: Acetaminophen 500 MG TAB PO PRN ×2 (10:29→17:52)
[2021-04-21] MEDS: Aspirin 81 mg Enteric Coated Tablet PO SCH (10:29)
[2021-04-21] MEDS: Cholecalciferol 1,000 UNITS (25 MCG) TAB PO SCH (10:30)
[2021-04-21] MEDS: AcetaZOLAMIDE 250 MG TAB PO SCH ×2 (10:30→20:37)
[2021-04-21] MEDS: Polyethylene Glycol 3350 17 GM Packet PO SCH (10:30)
[2021-04-21] MEDS: Zinc Sulfate 220 MG CAP PO SCH (10:30)
[2021-04-21] MEDS: Ascorbic Acid 500 mg Chewable Tablet PO SCH (10:30)
[2021-04-21 15:47] VITALS: BP 118/75
[2021-04-21] MEDS: cefTRIAXone\\ROCEPHIN 1 GM in Sodium Chloride 0.9% 100 ML IVPB SCH (17:53)
[2021-04-22 04:24] LABS: Hemoglobin 9.4 g/dL (12.0-16.0); Mean Corpuscular HGB CONC 29.9 g/dL (32.0-36.0); Platelet Count 310 thou/uL (130-400); RBC Distribution Width 19.5 % (11.5-14.5); Red Blood Cell (RBC) Count 3.03 mill/uL (4.20-5.40); White Blood Cell (WBC) Count 4.8 thou/uL (4.8-10.8)
[2021-04-22 04:39] LABS: Anion Gap 9 mmol/L (10-20); BUN (Urea Nitrogen) 21 mg/dL (7.0-18.7); Calc. Creatinine Clearance 291 mL/min (70-130); Calcium 8.2 mg/dL (7.8-10.44); Carbon Dioxide 37 mmol/L (22-29); Chloride 100 mmol/L (98-107); Glucose 136 mg/dL (70-105); Magnesium 2.4 mg/dL (1.6-2.6); Phosphorus 3.2 mg/dL (2.3-4.7); Potassium 3.9 mmol/L (3.5-5.1); Sodium 142 mmol/L (136-145)
[2021-04-22 04:54] LABS: #Eosinphils 0.1 thou/uL (0.0-0.7); #Lymphocytes 0.8 thou/uL (1.20-3.40); #Monocytes 0.4 thou/uL (0.11-0.59); #Neutrophils 3.4 thou/uL (1.40-6.50); %Basophils 0.1 % (0.0-1.0); %Eosinophils 1.6 % (0.0-10.0); %Lymphocytes 17.2 % (21.0-51.0); %Neutrophils 72.1 % (42.0-75.0); Anisocytosis SLIGHT = 6-15 cells (100X) (0-5/hpf); Hypochromia SLIGHT = 6-15 cells (100X) (0-5/hpf); MDiff Complete? YES; Stomatocytes SLIGHT = 2-5 cells (100X) (0-1/hpf)
[2021-04-22] MEDS: Sodium Chloride 0.65% Nasal 44 ML BOT EA NARE SCH ×2 (06:58→12:12)
[2021-04-22] MEDS: Polyethylene Glycol 3350 17 GM Packet PO SCH (08:55)
[2021-04-22] MEDS: Enoxaparin Sodium 40 MG/0.4 ML SYRINGE SC SCH ×2 (08:55→21:25)
[2021-04-22] MEDS: Aluminum & Magnesium Hydroxide 60 ML, Lidocaine 2% Viscous Solution 30 ML, diphenhydrAM... SSW SCH ×2 (08:55→12:13)
[2021-04-22] MEDS: Cholecalciferol 1,000 UNITS (25 MCG) TAB PO SCH (08:56)
[2021-04-22] MEDS: AcetaZOLAMIDE 250 MG TAB PO SCH ×2 (08:56→21:25)
[2021-04-22] MEDS: Zinc Sulfate 220 MG CAP PO SCH (08:56)
[2021-04-22] MEDS: Aspirin 81 mg Enteric Coated Tablet PO SCH (08:56)
[2021-04-22] MEDS: Ascorbic Acid 500 mg Chewable Tablet PO SCH (08:56)
[2021-04-22] MEDS: Acetaminophen 500 MG TAB PO PRN ×2 (09:05→12:54)
[2021-04-22] MEDS: cefTRIAXone\\ROCEPHIN 1 GM in Sodium Chloride 0.9% 100 ML IVPB SCH (18:11)
[2021-04-23] MEDS ORDERED: Folic Acid 1 MG TAB PO SCH (09:00)
[2021-04-23] MEDS ORDERED: Multivit, Therapeutic 1 TAB PO SCH (09:00)
[2021-04-23] MEDS ORDERED: Cyanocobalamin (Vitamin B-12) 1,000 MCG TAB PO SCH (09:00)
[2021-04-23] MEDS: Aspirin 81 mg Enteric Coated Tablet PO SCH (09:51)
[2021-04-23] MEDS: Ascorbic Acid 500 mg Chewable Tablet PO SCH (09:51)
[2021-04-23] MEDS: Enoxaparin Sodium 40 MG/0.4 ML SYRINGE SC SCH (09:51)
[2021-04-23] MEDS: AcetaZOLAMIDE 250 MG TAB PO SCH (09:51)
[2021-04-23] MEDS: Zinc Sulfate 220 MG CAP PO SCH (09:51)
[2021-04-23] MEDS: Cholecalciferol 1,000 UNITS (25 MCG) TAB PO SCH (09:51)
[2021-04-23] MEDS: Polyethylene Glycol 3350 17 GM Packet PO SCH (09:52)
[2021-04-23] MEDS: Acetaminophen 500 MG TAB PO PRN (15:59)
[2021-04-23 16:17] VITALS: TEMP 97.8
== END 2021-04-23 16:20 | DRG 177 ==
LOC: 2SW 14:03 → IMCU/EMU 03-31 13:08 → T4-A 04-07 11:42 → IMCU/EMU 04-09 05:33
PROVIDERS: ADMIT Student in an Organized Health Care Education/Training Program; ATTEND Internal Medicine
PROC: 8E0ZXY6 Isolation (ICD-10-PCS; principal; 2021-03-11)
PROC: 3E0333Z Introduction of Anti-inflammatory into Peripheral Vein, Percutaneous Approach (ICD-10-PCS; 2021-03-11)
PROC: XW033E5 Introduction of Remdesivir Anti-infective into Peripheral Vein, Percutaneous Approach, New Technology Group 5 (ICD-10-PCS; 2021-03-11)
PROC: XW0DXM6 Introduction of Baricitinib into Mouth and Pharynx, External Approach, New Technology Group 6 (ICD-10-PCS; 2021-03-13)
PROC: 5A09557 Assistance with Respiratory Ventilation, Greater than 96 Consecutive Hours, Continuous Positive Airway Pressure (ICD-10-PCS; 2021-03-14)
DX: U07.1 COVID-19 (principal); J96.21 Acute and chronic respiratory failure with hypoxia; J12.82 Pneumonia due to coronavirus disease 2019; I21.A1 Myocardial infarction type 2; J96.22 Acute and chronic respiratory failure with hypercapnia; I50.31 Acute diastolic (congestive) heart failure; E66.2 Morbid (severe) obesity with alveolar hypoventilation; B00.2 Herpesviral gingivostomatitis and pharyngotonsillitis; E87.3 Alkalosis; E87.1 Hypo-osmolality and hyponatremia; Z68.43 Body mass index [BMI] 50.0-59.9, adult; I11.0 Hypertensive heart disease with heart failure; E11.9 Type 2 diabetes mellitus without complications; J98.2 Interstitial emphysema; E87.6 Hypokalemia; D63.8 Anemia in other chronic diseases classified elsewhere; Z83.1 Family history of other infectious and parasitic diseases
CPT/HCPCS: 36415; 36600; 71045; 76705; 80048; 80053; 80076; 81001; 82728; 82805; 83605; 83735; 83880; 84100; 84145; 84484; 85025; 85379; 86140; 87070; 87086; 87205; 87529; 93005; 93010; 93306; 94660; J0133; J0360; J0456; J0696; J1100; J1120; J1650; J1940; J2060; J2270; J3490; J7030; J7050; Q0163

== ENCOUNTER 2021-04-26 20:13 | Inpatient (IN) | payer MEDICAID, SELFPAY ==
[2021-04-26 21:12] LABS: #Eosinphils 0.1 thou/uL (0.0-0.7); #Monocytes 0.5 thou/uL (0.11-0.59); #Neutrophils 4.3 thou/uL (1.40-6.50); %Basophils 0.7 % (0.0-1.0); %Eosinophils 1.6 % (0.0-10.0); %Lymphocytes 16.8 % (21.0-51.0); %Monocytes 7.8 % (0.0-10.0); %Neutrophils 73.1 % (42.0-75.0); Hemoglobin 9.7 g/dL (12.0-16.0); Mean Corpuscular HGB CONC 29.7 g/dL (32.0-36.0); Mean Corpuscular Hemoglobin 31.2 pg (27.0-31.0); Mean Platelet Volume 7.5 fL (7.4-10.4); Platelet Count 284 thou/uL (130-400); RBC Distribution Width 19.1 % (11.5-14.5); Red Blood Cell (RBC) Count 3.12 mill/uL (4.20-5.40); White Blood Cell (WBC) Count 5.9 thou/uL (4.8-10.8)
[2021-04-26 21:18] LABS: INR-International Normal Ratio 0.9; PTT 27.4 sec (22.9-36.1); Prothrombin Time 12.4 sec (12.0-14.7)
[2021-04-26 21:23] LABS: ALT (SGPT) 64 U/L (8-55); AST (SGOT) 41 U/L (5-34); Albumin 3.3 g/dL (3.5-5.0); Alkaline Phosphatase 108 U/L (40-110); BUN (Urea Nitrogen) 22 mg/dL (7.0-18.7); Bilirubin, Total 0.7 mg/dL (0.2-1.2); Calc. Creatinine Clearance 0 mL/min (70-130); Calcium 8.5 mg/dL (7.8-10.44); Globulin 3.5 g/dL (2.4-3.5); Glucose 160 mg/dL (70-105); Protein, Total 6.8 g/dL (6.0-8.3)
[2021-04-26 21:34] LABS: Anion Gap 11 mmol/L (10-20); Carbon Dioxide 35 mmol/L (22-29); Chloride 102 mmol/L (98-107); Potassium 4.4 mmol/L (3.5-5.1); Sodium 144 mmol/L (136-145)
[2021-04-26] MEDS ORDERED: HYDROcodone/Acetaminophen 7.5/325 mg Tablet PO PRN (23:32)
[2021-04-26] MEDS ORDERED: Ondansetron PF 4 MG/2 ML Vial IVP PRN (23:32)
[2021-04-26] MEDS ORDERED: Acetaminophen 325 MG TAB PO PRN (23:32)
[2021-04-26] MEDS ORDERED: HYDROcodone/Acetaminophen 5/325 mg Tablet PO PRN (23:32)
[2021-04-26] MEDS ORDERED: hydrALAZINE 20 MG/ML VIAL SLOW IVP PRN (23:41)
[2021-04-26] MEDS ORDERED: Pantoprazole 40 MG VIAL IVP SCH (23:59)
[2021-04-27] MEDS: Sodium Chloride 0.9% 1,000 ML IV SCH ×2 (01:15→14:28)
[2021-04-27 01:56] VITALS: BMI 46.3
[2021-04-27] MEDS ORDERED: Dextrose 5% in Water 1,000 ML IV PRN (02:10)
[2021-04-27] MEDS ORDERED: HumaLOG 300 UNITS/3 ML VIAL SC PRN ×2 (02:10)
[2021-04-27] MEDS ORDERED: Dextrose 50% Abboject 50 ML SYRINGE SLOW IVP PRN (02:10)
[2021-04-27 03:17] LABS: Hemoglobin 8.8 g/dL (12.0-16.0)
[2021-04-27] MEDS: Pantoprazole 40 MG VIAL IVP SCH ×2 (07:10→20:16)
[2021-04-27 09:01] LABS: Hemoglobin A1c 4.9 % (4.0-6.0)
[2021-04-27 09:16] LABS: ALT (SGPT) 62 U/L (8-55); AST (SGOT) 31 U/L (5-34); Albumin 3.1 g/dL (3.5-5.0); Alkaline Phosphatase 93 U/L (40-110); BUN (Urea Nitrogen) 20 mg/dL (7.0-18.7); Bilirubin, Total 0.6 mg/dL (0.2-1.2); Calc. Creatinine Clearance 314 mL/min (70-130); Calcium 8.2 mg/dL (7.8-10.44); Cardiac Risk 3.7 (Less than 4.5); Cholesterol 139 mg/dl (< 200 Desired); Globulin 3.1 g/dL (2.4-3.5); Glucose 113 mg/dL (70-105); HDL Cholesterol 38 mg/dL (>60 Neg Risk); LDL Cholesterol, Calculated 77 mg/dL; Protein, Total 6.2 g/dL (6.0-8.3); Triglycerides 120 mg/dL (Less than 150)
[2021-04-27 09:26] LABS: Anion Gap 11 mmol/L (10-20); Carbon Dioxide 33 mmol/L (22-29); Chloride 102 mmol/L (98-107); Potassium 3.8 mmol/L (3.5-5.1); Sodium 142 mmol/L (136-145)
[2021-04-27 09:40] LABS: #Eosinphils 0.1 thou/uL (0.0-0.7); #Monocytes 0.4 thou/uL (0.11-0.59); #Neutrophils 3.3 thou/uL (1.40-6.50); %Basophils 0.9 % (0.0-1.0); %Eosinophils 1.9 % (0.0-10.0); %Lymphocytes 20.2 % (21.0-51.0); %Monocytes 8.3 % (0.0-10.0); %Neutrophils 68.7 % (42.0-75.0); Hemoglobin 8.7 g/dL (12.0-16.0); Mean Corpuscular HGB CONC 29.8 g/dL (32.0-36.0); Mean Corpuscular Hemoglobin 31.3 pg (27.0-31.0); Mean Platelet Volume 7.8 fL (7.4-10.4); Platelet Count 239 thou/uL (130-400); RBC Distribution Width 19.1 % (11.5-14.5); Red Blood Cell (RBC) Count 2.79 mill/uL (4.20-5.40); White Blood Cell (WBC) Count 4.8 thou/uL (4.8-10.8)
[2021-04-27 09:43] LABS: Hypochromia SLIGHT = 6-15 cells (100X) (0-5/hpf); MDiff Complete? YES; Macrocytosis SLIGHT = 6-15 cells (100X) (0-5/hpf); Platelet Morphology Comment Appears Adequate; Polychromasia SLIGHT = 2-3 cells (100X) (0-2/hpf); Stomatocytes MODERATE= 6-15 cells (100X) (0-1/hpf); Target Cells SLIGHT = 2-5 cells (100X) (0-1/hpf)
[2021-04-27 11:49] LABS: SARS-CoV-2 PCR by NAA DETECTED (NotDetected)
[2021-04-27 14:17] LABS: Hemoglobin 8.7 g/dL (12.0-16.0)
[2021-04-27] MEDS ORDERED: Polyethylene Glycol 3350 17 GM Packet PO SCH (20:00)
[2021-04-28] MEDS: Sodium Chloride 0.9% 1,000 ML IV SCH (03:57)
[2021-04-28] MEDS ORDERED: Polyethylene Glycol 3350 17 GM Packet PO SCH (09:00)
[2021-04-28 09:02] LABS: White Blood Cell (WBC) Count 4.3 thou/uL (4.8-10.8)
[2021-04-28 09:11] LABS: ALT (SGPT) 57 U/L (8-55); AST (SGOT) 27 U/L (5-34); Albumin 3.2 g/dL (3.5-5.0); Alkaline Phosphatase 84 U/L (40-110); BUN (Urea Nitrogen) 19 mg/dL (7.0-18.7); Bilirubin, Total 0.6 mg/dL (0.2-1.2); Calc. Creatinine Clearance 343 mL/min (70-130); Calcium 8.2 mg/dL (7.8-10.44); Globulin 2.9 g/dL (2.4-3.5); Glucose 135 mg/dL (70-105); Iron 37 ug/dL (50-170); Iron Binding Capacity, Total 260 mcg/dL (265-497); Protein, Total 6.1 g/dL (6.0-8.3)
[2021-04-28 09:12] LABS: Iron 34 ug/dL (50-170); Iron Binding Capacity, Total 251 mcg/dL (265-497)
[2021-04-28 09:21] LABS: Anion Gap 11 mmol/L (10-20); Carbon Dioxide 37 mmol/L (22-29); Chloride 101 mmol/L (98-107); Potassium 4.2 mmol/L (3.5-5.1); Sodium 145 mmol/L (136-145)
[2021-04-28 09:30] LABS: Free T4 (Free Thyroxine) 0.67 ng/dL (0.70-1.48)
[2021-04-28] MEDS: Pantoprazole 40 MG VIAL IVP SCH (09:41)
[2021-04-28 10:34] LABS: Hemoglobin 8.1 g/dL (12.0-16.0); Mean Corpuscular Hemoglobin 31.3 pg (27.0-31.0); Red Blood Cell (RBC) Count 2.59 mill/uL (4.20-5.40)
[2021-04-28 12:44] LABS: #Eosinphils 0.2 thou/uL (0.0-0.7); #Lymphocytes 0.8 thou/uL (1.20-3.40); #Monocytes 0.4 thou/uL (0.11-0.59); #Neutrophils 2.9 thou/uL (1.40-6.50); %Basophils 0.8 % (0.0-1.0); %Eosinophils 3.9 % (0.0-10.0); %Lymphocytes 18.3 % (21.0-51.0); %Monocytes 9.2 % (0.0-10.0); %Neutrophils 67.7 % (42.0-75.0); Anisocytosis SLIGHT = 6-15 cells (100X) (0-5/hpf); Basophilic Stippling SLIGHT = 1-2 cells (100X) (None Seen); Hypochromia SLIGHT = 6-15 cells (100X) (0-5/hpf); MDiff Complete? YES; Macrocytosis SLIGHT = 6-15 cells (100X) (0-5/hpf); Mean Corpuscular HGB CONC 29.7 g/dL (32.0-36.0); Mean Platelet Volume 7.7 fL (7.4-10.4); Platelet Count 208 thou/uL (130-400); Platelet Morphology Comment Appears Adequate; Polychromasia MODERATE = 3-4 cells (100X) (0-2/hpf); RBC Distribution Width 18.7 % (11.5-14.5); Stomatocytes MODERATE= 6-15 cells (100X) (0-1/hpf); Tear Drops SLIGHT = 2-5 cells (100X) (0-1/hpf)
[2021-04-28 14:41] VITALS: BP 122/68; TEMP 97.8
[2021-04-30] MEDS ORDERED: Prevnar 13-Val Conj/PF 0.5 ML SYRINGE IM ONE (09:00)
== END 2021-04-28 15:30 | DRG 394 ==
LOC: ERS 20:13 → 2NO 22:59 → OBSVTOIN 04-27 13:45
PROVIDERS: ADMIT Student in an Organized Health Care Education/Training Program; ATTEND Internal Medicine
DX: K64.9 Unspecified hemorrhoids (principal); I50.32 Chronic diastolic (congestive) heart failure; E66.2 Morbid (severe) obesity with alveolar hypoventilation; R73.9 Hyperglycemia, unspecified; E07.81 Sick-euthyroid syndrome; E03.9 Hypothyroidism, unspecified; J43.9 Emphysema, unspecified; I11.0 Hypertensive heart disease with heart failure; Z68.42 Body mass index [BMI] 45.0-49.9, adult; Z86.16 Personal history of COVID-19; Z79.82 Long term (current) use of aspirin; Z79.51 Long term (current) use of inhaled steroids; Z79.899 Other long term (current) drug therapy
CPT/HCPCS: 36415; 36416; 74177; 80053; 80061; 82728; 83036; 83540; 83550; 83880; 84439; 84443; 84481; 85025; 85610; 85730; 86850; 86900; 86901; 93005; C9113; G0378; J7050; U0003; U0005